=== PATIENT | female | born 1940 | race Caucasian/White ===

== ENCOUNTER → 2017-03-18 | Outpatient (CLI) | payer OTHER ==
[~2017-03-18] MED LIST: ADVAIR 100/501 E1 INH; ADVAIR 250/501 EA INH; ALBUTEROL; ANTIVERT PO; ANTIVERT25 MG PO; ATROVENT I0.5 MG/2.5 INH; BIAXIN500 MG PO; BREO ELLIPTA 11 EACH INH; CIPRO500 MG PO; CYCLOBENZAPRINE10 MG PO; DIFLUCAN150 MG PO; FLONASE0.05 MG/AC NS; HCTZ/TRIAMTEREN1 CA2 PO; KEFLEX500 MG PO; LEVOFLOXACIN500 MG PO; LIPITOR PO; LOPRESSOR; Lopressor25 MG PO; MEDROL DOSEPAK4 MG PO; MOBIC7.5 MG PO; NITROTAB0.4 MG SL; NORCO 5-325 TA1 EACH PO; OXYGEN NAS; PEPCID20 MG PO; PHENERGAN W/CO120 ML PO; PLAVIX75 MG PO; PREDNISONE20 MG PO; PRILOSEC20 MG PO; PROTONIX40 MG PO; PROVENTIL0.09 MG/AC IH; SYMBICORT1 AE1 IH; TRAMADOL HCL50 MG PO; TRAMADOL50 MG PO; VENTOLIN 02.5 MG/3 M INH; VENTOLIN HFA INH; VIBRAMYCIN100 MG PO; VICODIN 5/500 505 MG PO; XANAX0.25 MG PO; XANAX0.5 MG PO; ZOVIRAX800 MG PO
--- NOTE | ~2017-03-18 | ST ---
[place], [place] EXERCISE STRESS TEST REPORT NAME: [id number] UNIT #: [id number] ROOM: DOCTOR: HA AGOSTO MD BIRTHDATE: [birth year] DOS: 03/18/2017 PHARMACOLOGIC STRESS TEST. REFERRED BY: INDICATION: Dyspnea. PROCEDURE: The patient was given a rapid infusion of regadenoson 0.4 mg intravenously followed by a saline flush. She experienced dyspnea, headache and nausea. Her resting heart rate of 81, harini to 110. The resting blood pressure of 118/70, fell to 100/50. Her symptoms persisted and therefore, she was given aminophylline 100 mg intravenously with relief of symptoms. She had a normal tachycardic heart rate response, but no diagnostic ST changes with the infusion. IMPRESSION: 1. Well tolerated infusion of regadenoson. 2. Isotope injected 40 seconds after the infusion of regadenoson. Please see the separately dictated imaging report for further details of the patient's stress test results. HA AGOSTO MD CM:STRESS:EXERCISE STRESS TEST REPORT [id number] HA AGOSTO MD
--- NOTE | 2017-03-18 10:15 | NUR ---
INFORMED CONSENT OBTAINED FOR LEXISCAN NUCLEAR STRESS TEST WITH DR. AGOSTO. RESTING EKG NSR WITH A RESTING HR OF 81 WITH BP OF 118/70. LUNGS DIMINISHED BS WITH SPO2 OF 95% WITH NASAL O2 OF 3L. PT COMPLETED A 1:00 LEXISCAN PROTOCOL RECEIVING LEXISCAN 0.4 MG IV OVER 10 SECONDS. HAD NO CHEST PAIN OR ANY ST CHANGES. HAD SHORTNESS OF BREATH WITH SPO2 OF 98% WITH NASAL O2 OF 3L. ALSO HAD C/O NAUSEA AND HEADACHE. HAD A PEAK HR OF 110 WITH BP OF 100/50. CONTINUED TO HAVE C/O NAUSEA AND HEADACHE IN RECOVERY AND MEDICATED WITH AMINOPHYLLINE 100 MG ORDERED. NAUSEA AND HEADACHE RELIEVED AFTER AMINOPHYLLINE ADMINISTERED. LAST RECOVERY HR OF 95 WITH BP OF 110/64. AWAITING SCANNING IN STABLE CONDITION.
== END | disposition home or self-care (01) ==
LOC: CARD 01:34
DX: I25.10 Atherosclerotic heart disease of native coronary artery without angina pectoris (principal)

== ENCOUNTER 2017-08-29 11:40 | Inpatient (IN) | payer OTHER ==
[~2017-08-29] VITALS: Ht 160 cm; Wt 70.8 kg
--- NOTE | ~2017-08-29 | PR ---
[place], [place] PROGRESS NOTE NAME: DAMION AMOR UNIT #: [id number] ROOM: 407 DOCTOR: FRANK COFFMAN MD,GREG BIRTHDATE: [birth year] DOS: 09/06/2017 SUBJECTIVE: She has been noted comfortable at this time, sitting on the chair, reduction of symptoms of shortness of breath noted, coughing has been noted moderately without any expectoration or symptoms of chest pain or any acute hemoptysis. OBJECTIVE: VITAL SIGNS: Normal temperature, respiratory rate 18, heart rate of 96, blood pressure 131/77. Pulse ox saturation on 3 liters nasal cannula 92% saturation. HEENT: No new change. NECK: Supple. CARDIOVASCULAR: S1, S2 is audible. LUNGS: The patient noted with moderate decreased breath sounds with expiratory wheezing, decreased from previous exam. ABDOMEN: Soft, nontender, bowel sounds present. EXTREMITIES: Without any acute edema. LABORATORY DATA: Chest x-ray of the patient was noted with small area of atelectasis with infiltration in the left lower lung base. IMPRESSION: The patient has been noted with ongoing cough with sputum expectoration, acute on chronic hypoxic and hypercapnic respiratory failure, small area of atelectasis in the left lower lobe related to mucus impaction. PLAN OF TREATMENT: Continue current conservative treatment, other therapies. Bronchoscopy planned to be done on Friday. Other supportive therapy, plan of management and care. GREG MARIE MD CM:PNTRANS [id number] GREG COFFMAN MD 09/07/17 0044 interface
--- NOTE | ~2017-08-29 | PR ---
[place], [place] PROGRESS NOTE NAME: DAMION AMOR UNIT #: [id number] ROOM: 407 DOCTOR: FRANK COFFMAN MD,GREG BIRTHDATE: [birth year] DOS: 09/02/2017 SUBJECTIVE: She has been noted comfortable, transferred from Intensive Care Unit to telemetry floor, was resting comfortably in the bed, sitting, eating her food, using oxygen supplementation with nasal cannula this morning. She has used the BiPAP previously as ordered. OBJECTIVE: VITAL SIGNS: This morning, normal temperature, respiratory rate 20, heart rate 94, blood pressure 146/80, pulse oxygen saturation on 4 liters at 96% saturation. HEENT: Examination shows head was atraumatic. Eyes nonicterus. NECK: Supple. CARDIOVASCULAR: S1, S2 audible. LUNGS: Noted with moderate reduction in the breath sounds bilaterally. There were no crackles or wheezing. ABDOMEN: Soft, nontender. Bowel sounds present. EXTREMITIES: Without any acute edema. LABORATORY DATA: Arterial blood gas yesterday on 5 liters, pH is 7.25, pCO2 of 66, pO2 of 80. IMPRESSION: The patient with slow but gradual resolution of acute on chronic hypercapnic and hypoxic respiratory failure with acute exacerbation of chronic obstructive pulmonary disease. PLAN OF TREATMENT: No changes in the plan of therapy at this time. Continue the BiPAP, use will be intermittent during the day and continuous at nighttime. Oxygen supplementation, bronchodilators, other treatment. The steroid dose could be reduced starting tomorrow to 40 mg b.i.d. from 80 mg b.i.d. Other supportive therapy, plan of management. Ambulation and physical therapy was advised. GREG MARIE MD CM:PNTRANS [id number] GREG COFFMAN MD 09/02/17 1723 interface
--- NOTE | ~2017-08-29 | PR ---
[place], [place] PROGRESS NOTE NAME: DAMION AMOR UNIT #: [id number] ROOM: 407 DOCTOR: FRANK COFFMAN MD,GREG BIRTHDATE: [birth year] DOS: 09/01/2017 SUBJECTIVE: The patient was noted comfortable at this time, resting, sitting on the chair, noted fully awake, alert and oriented, using oxygen supplementation nasal cannula. She was transferred to Intensive Care Unit yesterday noted with hypoxia. She has been continued BiPAP setting is 20/10. She has been using the BiPAP as advised continuous at nighttime, intermittent rather during the day as well. Denies symptoms of hemoptysis. Denies any nausea, vomiting, diarrhea, abdominal pain. Denies any edema or pain of lower extremities. Denies any skin lesions or rashes. Denies symptoms of dizziness. Denies symptoms of headache. Remaining systems were reviewed, they were noted all negative. PHYSICAL EXAMINATION: VITAL SIGNS: Temperature 100.3 degrees Fahrenheit noted to normal temperature. The respiratory recorded as 20-21. Heart rate of 86-114, blood pressure 127/67-132/68. The pulse oxygen saturation on 4 liter nasal cannula was 89% with 5 liters 90% saturation BiPAP, 2 liters 40% oxygen saturation 98% saturation. HEENT: Head was atraumatic. Eyes nonicterus. NECK: Supple. CARDIOVASCULAR: S1, S2 is audible. LUNGS: Noted generally decreased breath sounds bilaterally, scattered wheezing. There were no crackles. ABDOMEN: Soft, nontender. Bowel sounds present. CENTRAL NERVOUS SYSTEM: Noted without any acute edema. MUSCULOSKELETAL: Without any acute deformities. SKIN: No lesions or rashes. LABORATORY DATA: Chest x-ray 1 view were done yesterday and the patient transferred to Intensive Care Unit was noted without any acute pulmonary infiltration. COPD changes were present. CBC this morning, hemoglobin 10.5, hematocrit 35.0, platelet count normal. WBC count, normal. Arterial blood gas that I ordered for the patient this morning was obtained on 5 liters, pH of 7.25, pCO2 of 66.4, pO2 of 88.2. CMP this morning, BUN 26, creatinine 1.07. Glucose 113. Total protein 5.8, albumin 2.8. AST 47. IMPRESSION: 1. The patient noted with acute on chronic severe hypercapnic hypoxic respiratory failure, clinically improving. 2. Improving acute exacerbation of chronic obstructive pulmonary disease progressively. 3. Mild azotemia noted mostly secondary to corticosteroids as well. 4. Past history of nicotine abuse. 5. Metabolic alkalosis secondary to hypercarbia. PLAN OF MANAGEMENT: The patient could be transferred again to the telemetry floor, but continue the BiPAP as ordered with the current settings. Oxygen supplementation, maintain pulse ox 92% or greater. Monitor the respiratory symptoms closely. Usual care. All other supportive therapy, plan of management [place], [place] PROGRESS NOTE NAME: DAMION AMOR UNIT #: [id number] ROOM: 407 DOCTOR: GREG PA MD BIRTHDATE: [birth year] and treatments. GREG MARIE MD CM:DRE [id number] GREG COFFMAN MD 09/01/17 2352 interface
--- NOTE | ~2017-08-29 | CON ---
[place], [place] REPORT OF CONSULTATION NAME: DAMION AMOR UNIT #: [id number] ROOM: 517 DOCTOR: FRANK COFFMAN MDGREG BIRTHDATE: [birth year] DOS: 08/30/2017 PULMONARY CONSULTATION, EVALUATION, AND MANAGEMENT CONSULTATION ORDERED BY THE : Hospitalist services. REASON FOR CONSULTATION: To assess the patient's current acute on chronic hypoxic and hypercapnic respiratory failure. HISTORY OF PRESENT ILLNESS: This is a 77-year-old white female admitted to the hospital on 05/01/2017 as the patient presented with symptoms of having increased shortness of breath, which was ongoing for the past several days. The symptoms were noted with further gradual increase in the last 2 days requiring assessment in the Emergency Room. She has been also noted to have cough and associated sputum expectoration, yellowish in color, currently noted no sputum expectoration. She denies any symptoms of chest pain, but chest tightness was noted. Denies symptoms of hemoptysis as current symptom. REVIEW OF SYSTEMS: CONSTITUTIONAL SYMPTOMS: She has symptoms of fever and chills at the present time, sore throat, or hoarseness. EYES: Denied burning, redness, or discharge. She denies postnasal drainage. CARDIOVASCULAR: No anginal pain, edema, or pain in lower extremity. GASTROINTESTINAL: No dysphagia, nausea, vomiting, diarrhea, abdominal pain, hematemesis, melena, or hematochezia. SKIN: No abnormal lesions or rashes. CENTRAL NERVOUS SYSTEM: No dizziness, headache, diplopia, or syncopal episodes. MUSCULOSKELETAL SYMPTOMS: Without any acute deformities. CENTRAL NERVOUS SYSTEM: The patient denies syncopal episodes. The patient has tingling sensation in extremities. Remaining systems were reviewed and they were noted all negative. PAST MEDICAL HISTORY: 1. Centrilobular emphysema. 2. Chronic hypoxic respiratory failure, requiring oxygen supplementation. She later use at home regular. 3. History of uterine cancer. 4. Nicotine dependence. 5. History of herpetic neuralgia. 6. Coronary artery disease. 7. Generalized anxiety disorder. 8. Past history of shingles. PAST SURGICAL HISTORY: 1. Cardiac catheterization and coronary stents insertion. 2. Complete hysterectomy. 3. Therapeutic bronchoscopy in 2010 and in May 2017 during her recent admission. [place], [place] REPORT OF CONSULTATION NAME: DAMION AOMR UNIT #: [id number] ROOM: 517 DOCTOR: FRANK COFFMAN MD,GREG BIRTHDATE: [birth year] SOCIAL HISTORY: The patient is , has 4 children, lives at home. Tobacco usage noted since teenager as about a pack of cigarettes per day. There was no history of alcohol use or illicit drug use. FAMILY HISTORY: Both parents have been with history of lung cancer reported in some family members. MEDICATIONS: Current medications administered noted IV Solu-Medrol 80 mg b.i.d., Plavix, Lipitor, metoprolol tartrate, DuoNeb, Zithromax, Rocephin, and other p.r.n. medications administered. DRUG ALLERGIES: Noted with no known drug allergies. PHYSICAL EXAMINATION: GENERAL: This is a 77-year-old female who has been noted currently awake with use of the BiPAP, fully awake and alert, follows vocal commands appropriately, answer the question while even using the BiPAP. Height for the patient was noted as 5 feet 3 inches, weight 156 pounds, and BMI 27. VITAL SIGNS: Normal temperature, respiratory rate 16-23, heart rate 107-83, and blood pressure of 60/65-134/59. Pulse oxygen saturation noted on 45% BiPAP was 99% saturation on 3 liters, earlier 96% saturation. HEENT: On examination, mild obesity. Head was atraumatic. Eyes nonicterus. NECK: Supple. CARDIOVASCULAR: S1, S2 is audible. LUNGS: Noted diffuse expiratory wheezing, no crackles. ABDOMEN: Soft, nontender. Mild obesity. Bowel sounds present without tenderness. VISIBLE SKIN: No lesions or rashes. CENTRAL NERVOUS SYSTEM: Cranial nerves 2-12 intact. No focal deficit. MUSCULOSKELETAL: No gross deformity. LABORATORY DATA: The patient's CBC of 08/29/2017 was noted as normal CBC. On admission, arterial blood gas initial, first pH 7.35, pCO2 61, and pO2 121 on 3 liter nasal cannula. The arterial blood gas later on 3 liters, pH 7.23, pCO2 75, and pO2 77.6. The CMP of the patient that was done yesterday noted BUN 17, creatinine 1.53, and CO2 38. The CMP, which was done today shows glucose 148, BUN 18, creatinine 1.25, and CO2 was 34. Chest x-ray, 1 view, which was done in the Emergency Room was noted without any acute pulmonary infiltration. IMPRESSION: 1. The patient with current acute on chronic hypercapnic and hypoxic respiratory failure, exacerbation of chronic obstructive pulmonary disease. 2. Acute bronchitis was also noted, most likely bacterial in origin very likely. 3. Past history of tobacco use, which has been discontinued. 4. Metabolic ____ secondary to chronic hypercarbia. PLAN OF TREATMENT: Continue current dose of Solu-Medrol, bronchodilators, and the BiPAP setting has been changed to 16/10 that will be continued. The additional changes in treatment will be done based on progression of the [place], [place] REPORT OF CONSULTATION NAME: DAMION AMOR UNIT #: [id number] ROOM: [facility] DOCTOR: FRANK COFFMAN MD,GREG BIRTHDATE: [birth year] illness. Repeat arterial blood gases 2-3 hours post changes of the BiPAP and reassessment. Further changes accordingly. Continuation of other supportive, plan of management, and care plan. Usual treatment. Additional treatment changes will be made for the patient based on the progression of the illness. Thanks for allowing me to participate in the care of this patient. GREG MARIE MD CM:CONSTR:REPORT OF CONSULTATION 08/31/17 0339 interface
--- NOTE | ~2017-08-29 | PR ---
[place], [place] PROGRESS NOTE [id number] UNIT #: [id number] ROOM: 407 DOCTOR: FRANK COFFMAN MD,GREG BIRTHDATE: [birth year] DOS: 09/08/2017 SUBJECTIVE: The patient remains in the hospital. The patient still noted the coughing, which remained nonproductive, shortness of breath with mild exertion with general weakness and fatigue. She has been noted n.p.o. past midnight. Bronchoscopy that was planned to be done today. She had not been noted any acute hemodynamic instability at the present time. General weakness and fatigue were noted. The patient with decreased ambulation secondary to his shortness of breath. Denies any symptoms of nausea, vomiting, diarrhea or any abdominal pain. The remaining systems were reviewed. The patient, they were noted all negative. OBJECTIVE: VITAL SIGNS: For the patient which were recorded showed the temperature noted as normal, respiratory rate 20, heart rate of 85, and blood pressure 117/57. Pulse oxygen saturation of the patient was noted as 99% saturation on 4 liters nasal cannula. HEENT: Examination shows head was atraumatic. Eyes nonicterus. NECK: Supple. CARDIOVASCULAR: S1, S2 audible. LUNGS: The patient was noted with moderate decreased breath sounds, expiratory wheezing, no crackles. ABDOMEN: Soft and nontender. Bowel sounds present. EXTREMITIES: Without any acute edema. MUSCULOSKELETAL: Without any acute deformities. LABORATORY DATA: CMP today, BUN 29, creatinine was normal, glucose normal, carbon dioxide 41. Potassium 5.2. CBC of the patient this morning; WBC count 13.7, hemoglobin 11.2, hematocrit 37.7, and platelet count of 266,000. IMPRESSION: 1. Ongoing acute exacerbation of chronic obstructive pulmonary disease, acute tracheobronchitis, acute chronic hypercapnic and hypoxic respiratory failure. 2. Metabolic alkalosis which is treated with Diamox as well. 3. ____ debility, remains persistent. 4. Impaction of the mucus in the airways also suspected. PLAN OF THERAPY: Continuation of the bronchodilators and oxygen supplementation. Continue Diamox. The patient monitoring the kidney function as well as electrolytes at this time. The potassium of the patient was noted 3.8 today. Other supportive plan of therapy and management plan of care. Any changes modification treatment if necessary will be ordered after the bronchoscopy. [place], [place] PROGRESS NOTE NAME: DAMION AMOR UNIT #: [id number] ROOM: 407 DOCTOR: FRANK COFFMAN MD,GREG BIRTHDATE: [birth year] GREG MARIE MD CM:PNTRANS [id number] [id number] GREG COFFMAN MD 09/08/17 1452 interface
--- NOTE | ~2017-08-29 | PROC NOTE ---
[place], [place] PROCEDURE NOTE NAME: DAMION AMOR UNIT #: [id number] ROOM: 407 DOCTOR: FRANK COFFMAN MD,GREG BIRTHDATE: [birth year] DOS: 09/08/2017 PREOPERATIVE DIAGNOSIS: Persistent severe cough. The patient is on maximal medical therapy. POSTOPERATIVE DIAGNOSIS: The patient has successful removal of the mucus impaction major airways bilaterally. PROCEDURE DESCRIPTION: Informed consent obtained for the patient. She was brought to the OR and placed in supine position. Conscious sedation administered by the Anesthesia Department. After achieving proper sedation, airway introduced into the mouth. Bronchoscope advanced to the airway into laryngeal area. Epiglottis and vocal cords were seen. Vocal cords were moving symmetrically with the movements bilaterally. Bronchoscope entered to vocal cord and tracheal lumen. The tracheal lumen of the patient was noted with moderate amount of thick mucoid secretion suctioned at saida level. Right upper, right middle, right lower, left upper, lingular lower lobe bronchi were all noted with impaction caused by the mucus plugs. All secretions suctioned out and cleared out with normal saline wash, sent for cultures. Procedure well tolerated by the patient without complication. Postoperative findings were discussed with the patient's daughter in detail. No change in treatment at this time will be necessary. GREG MARIE MD CM:PROCNOTE:PROCEDURE NOTE 1236 1450 GREG COFFMAN MD
--- NOTE | ~2017-08-29 | EKG ---
[place], [place] ELECTROCARDIOGRAM REPORT NAME: DAMION AMOR UNIT #: [id number] ROOM: [place] [id number] DOCTOR: FRANK COFFMAN MD,GREG BIRTHDATE: [birth year] DOS: 08/29/2017 ELECTROCARDIOGRAM REPORT The electrocardiogram showed normal sinus rhythm. Heart rate of 86 beats per minute. GREG MARIE MD CM:EKGRPT:ELECTROCARDIOGRAM REPORT [id number] GREG COFFMAN MD
--- NOTE | ~2017-08-29 | PR ---
[place], [place] PROGRESS NOTE NAME: DAMION AMOR UNIT #: [id number] ROOM: 407 DOCTOR: FRANK COFFMAN MD,GREG BIRTHDATE: [birth year] DOS: 09/04/2017 SUBJECTIVE: The patient was noted comfortable at this time without acute distress, resting on the bed. Still noted with overall debility. She has been assessed for Jail Facility placement. OBJECTIVE: VITAL SIGNS: Normal temperature, respiratory rate 20, heart rate 93, blood pressure 132/79 and 120/60. Pulse oxygen saturation 3 liters nasal cannula 94% saturation. HEENT: Moderate obesity. Head was atraumatic. Eyes nonicterus. CARDIOVASCULAR: S1, S2 is audible. LUNGS: Noted with [id number] decreased breath sounds, scattered wheezing, no crackles. ABDOMEN: Soft, nontender and obese. EXTREMITIES: Without any acute edema. LABORATORY DATA: CBC: Normal WBC count and hemoglobin 11.5. BMP: BUN 36 and creatinine 1.14. IMPRESSION: 1. The patient with slow resolution of acute on chronic severe hypercapnic and hypoxic respiratory failure. 2. Acute exacerbation of chronic obstructive pulmonary disease. 3. Mild azotemia related to corticosteroids. PLAN OF MANAGEMENT: Decrease the Solu-Medrol to 40 mg daily dosing from today. Proceed with the Jail Facility assessment. Noninvasive ventilator for the patient's chronic hypercapnic respiratory failure. Order was noted in process for prior authorization from the insurance. GREG MARIE MD CM:PNSP 1207 [id number] GREG COFFMAN MD 09/04/17 1427 interface
--- NOTE | ~2017-08-29 | PR ---
[place], [place] PROGRESS NOTE [id number] UNIT #: [id number] ROOM: 407 DOCTOR: FRANK COFFMAN MD,GREG BIRTHDATE: [birth year] DOS: 09/05/2017 SUBJECTIVE: The patient was noted comfortable. The patient rather sitting on the chair this morning has developed increased chest congestion and cough, unable to expectorate sputum, using Flutter valve. Also, continued bronchodilators and the Mucinex. She has not been noted any symptoms of chest pain, shortness breath. Wheezing was also noted intermittently, worsens at times. She has been using the BiPAP as previously. She has not been noted symptoms of abdominal pain, nausea, vomiting. Mild edema of the ankles were reported. Medications were reviewed. They were noted all negative. OBJECTIVE: VITAL SIGNS: Normal temperature, respiratory rate 18, heart rate 91, blood pressure 129/68. The pulse oxygen saturation on 3 liters nasal cannula 96% saturation ____ saturation. HEENT: Head was atraumatic. Eyes: No icterus. NECK: Supple. CARDIOVASCULAR: S1, S2 audible. LUNGS: The patient was noted without any crackles. Moderate decreased breath sounds with expiratory wheezing. ABDOMEN: Soft, nontender. Bowel sounds present. EXTREMITIES: The patient noted without any acute edema. SKIN: No lesions or rashes. MUSCULOSKELETAL: Without any acute deformities. LABORATORY DATA: The CBC that was done for the patient today: WBC count noted 11.7, hemoglobin 11.3, platelet count was normal. BMP this morning, BUN 33, creatinine normal, glucose 123. CO2 of 34. The chest x-ray was ordered for the patient for further assessment. IMPRESSION: 1. The patient with increased respiratory symptoms of coughing, chest congestion, inability to expectorate sputum with wheezing and shortness of breath. 2. Acute exacerbation of chronic obstructive pulmonary disease. The patient was also noted with acute on chronic severe hypercapnic and hypoxic respiratory failure. PLAN OF TREATMENT: Assess the chest x-ray of the patient. Continue Mucinex, bronchodilators and the flutter valve use. Bronchoscopy for the patient was planned to be done on Friday morning. The patient's ____ to be discharged to the nursing facility, which need to be cancelled because of the patient worsening of the respiratory status noted and further addition of treatment ____ acute care. [place], [place] PROGRESS NOTE NAME: DAMION AMOR UNIT #: [id number] ROOM: 407 DOCTOR: GREG PA MD BIRTHDATE: [birth year] GREG MARIE MD CM:PNSP [id number] GREG COFFMAN MD 09/05/17 1803 interface
--- NOTE | ~2017-08-29 | PR ---
[place], [place] PROGRESS NOTE NAME: DAMION AMOR UNIT #: [id number] ROOM: 407 DOCTOR: FRANK COFFMAN MD,GREG BIRTHDATE: [birth year] DOS: 09/07/2017 SUBJECTIVE: She has been noted comfortable. She noted the coughing. The patient remains nonproductive. Denies symptoms of chest pain. The shortness of breath has been improving. Denies symptoms of abdominal pain. OBJECTIVE: VITAL SIGNS: Normal temperature, respiratory rate 18, heart rate 82, blood pressure 108/48. Pulse oxygen saturation of the patient recorded on 3 liters 95% saturation. HEENT: Head was atraumatic. Eyes nonicterus. CARDIOVASCULAR: S1, S2 audible. LUNGS: The lung was noted with moderate decreased breath sounds with expiratory wheezing, no crackles. ABDOMEN: Soft, nontender. EXTREMITIES: Without acute edema. LABORATORY DATA: CBC of count 13.7, hemoglobin 11.2, platelet count was noted as normal. The CMP of patient, BUN 29, creatinine was normal. CO2 of 42. IMPRESSION: 1. The patient with acute on chronic hypercapnic and hypoxic respiratory failure with acute ongoing bronchitis with coughing, preop for bronchoscopy tomorrow. 2. Metabolic alkalosis secondary to the chronic hypercarbia. PLAN OF TREATMENT: Start the patient on the Diamox 250 mg p.o. b.i.d. for metabolic alkalosis. Monitoring of the potassium ____ that will be done. Other supportive therapy, plan of management and care plan. GREG MARIE MD CM:PNTRANS [id number] GREG COFFMAN MD 09/07/17 1826 interface
--- NOTE | ~2017-08-29 | PR ---
[place], [place] PROGRESS NOTE NAME: DAMION AMOR UNIT #: [id number] ROOM: 415 DOCTOR: GREG PA MD BIRTHDATE: [birth year] DOS: 09/09/2017 SUBJECTIVE: The patient noted comfortable at this time, has bronchoscopy done yesterday with significant reduction and improvement in respiratory symptoms were noted. She has not been noted symptoms of chest pain or any hemoptysis. OBJECTIVE: VITAL SIGNS: Normal temperature, respiratory rate 18, heart rate 78, blood pressure 115/53. The pulse oxygen saturation of the patient noted on 3 liters nasal cannula 97% saturation. HEENT: Examination shows head was atraumatic. Eyes, nonicterus. NECK: Supple. CARDIOVASCULAR: S1, S2 is audible. LUNGS: The patient was noted without any wheezing or crackles at the present time. Breaths are noted mildly decreased bilaterally. ABDOMEN: Soft, nontender. EXTREMITIES: Without any acute edema. LABORATORY DATA: Gram-stain of the bronchial washing noted many white blood cells, moderate epithelial cells, rare gram-positive cocci in pairs, and rare budding yeast. The BMP of patient was noted as normal BUN and creatinine of 1.15, CO2 of 40. IMPRESSION: Resolving acute on chronic severe hypercapnic hypoxic respiratory failure with improvement in the respiratory symptom. The patient noted significant reduction in the cough and wheezing after bronchoscopy. Pending culture results. PLAN OF TREATMENT: Continue bronchodilators and oxygen supplementation. The patient discharged and admitted to the group home facility today with followup cultures, make any change in the antibiotic if necessary. The bronchial washing cultures. The patient will be benefitting from noninvasive ventilator as the patient was not noted effective improvement in the respiratory failure with use of the BiPAP and/or CPAP or similar devices. [place], [place] PROGRESS NOTE NAME: DAMION AMOR UNIT #: [id number] ROOM: 415 DOCTOR: GREG PA MD BIRTHDATE: [birth year] GREG MARIE MD CM:PNTRANS [id number] GREG COFFMAN MD 09/09/171920 interface
--- NOTE | ~2017-08-29 | PR ---
[place], [place] PROGRESS NOTE NAME: DAMION AMOR UNIT #: [id number] ROOM: 407 DOCTOR: RFANK COFFMAN MD,GREG BIRTHDATE: [birth year] DOS: 09/03/2017 SUBJECTIVE: The patient has been noted comfortable at this time using the BiPAP as ordered and other medical management as well. She has not been noted any symptoms of chest pain or any hemoptysis. The patient has not been reported any symptoms of abdominal pain. Denies symptoms of nausea or vomiting. Generally weak and fatigued, was noted still requires significant amount of oxygen supplementation as well. The remaining systems were reviewed, they were noted all negative. OBJECTIVE: GENERAL: General weakness was noted. VITAL SIGNS: Showed normal temperature, respiratory rate 20, heart rate of 77, blood pressure 144/71. The pulse oxygen saturation noted on 40% with the BiPAP 97% with 4 liters 97% saturation. HEENT: Moderate obesity. Head was atraumatic. Eyes: Nonicterus. NECK: Supple. CARDIOVASCULAR: S1, S2 is audible. LUNGS: The patient noted general reduction in breath sounds without any wheeze or crackles. ABDOMEN: Soft, nontender. EXTREMITIES: The patient was noted without any acute edema. MUSCULOSKELETAL: Does not show any deformities. VISIBLE SKIN: No lesions or rashes. GENITOURINARY: Noted, intact for this patient without any focal deficit. LABORATORY DATA: CBC today were normal, WBC count and platelet count, hemoglobin 10.9. CMP this morning, glucose 148, BUN 38, creatinine 1.19. CO2 34. IMPRESSION: 1. Severe debility. Noted with acute on chronic, severe hypercapnic and hypoxic respiratory failure. 2. Acute exacerbation of chronic obstructive pulmonary disease with gradual and slow improvement. 3. Metabolic alkalosis secondary to chronic hypercarbia. PLAN OF MANAGEMENT: Continue BiPAP during the hospitalization for discharge for patient from the hospital. The patient would benefit from use of noninvasive ventilator to prevent exacerbation or reduce the hospitalization for this patient of underlying chronic obstructive pulmonary disease. This would also result in improvement in the quality of life with use of noninvasive ventilator would be used at home, at nighttime, p.r.n. during the day. The patient does have severe COPD. The authorization from the insurance would be asked. In the meantime, no other change in treatment will be necessary. Potential assessment for [facility] for continued medical management would be advised as well. Assessment and management has been discussed with primary care attending of this patient. [place], [place] PROGRESS NOTE NAME: DAMION AMOR UNIT #: [id number] ROOM: [facility] DOCTOR: FRANK COFFMAN MD,GREG BIRTHDATE: [birth year] GREG MARIE MD CM:PNTRANS [id number] GREG COFFMAN MD 09/03/17 1838 interface
[2017-08-29 11:45] VITALS: BP 126/61
[2017-08-29 12:19] VITALS: BP 108/63
[2017-08-29 12:37] LABS: BASO % 0.3 % (0.0-1.0); EOS # 0.1 10*3/uL (0.0-0.4); EOS % 0.8 % (1.0-4.0); HEMATOCRIT 40.9 % (37.0-47.0); HEMOGLOBIN 12.8 g/dl (12.0-16.0); LYMPH # 0.7 10*3/uL (1.3-4.4); MEAN CELL VOLUME 96.9 fl (81.0-99.0); MEAN CORPUSCULAR HGB 30.3 pg (27.0-31.0); MEAN CORPUSCULAR HGB CONC 31.3 g/dl (33.0-37.0); MEAN PLATELET VOLUME 11.4 fl (9.6-12.3); MONO # 0.9 10*3/uL (0.1-1.0); MONO % 12.6 % (3.0-9.0); NEUT # 5.5 10*3/uL (2.3-7.9); PLATELET COUNT AUTOMATED 208 10*3/uL (130-400); RED BLOOD COUNT 4.22 10*6/uL (4.10-5.10); RED CELL DISTRI WIDTH 12.5 % (0-14.5); WHITE BLOOD COUNT 7.2 10*3/uL (4.8-10.8)
[2017-08-29 12:43] LABS: ABG BASE EXCESS 6.5 mmol/L (-2.0-2.0); ABG HCO3 33.4 mmol/l (22-26); ABG O2 SATURATION 98.6 % (95-97); ARTERIAL BLOOD GAS PCO2 61.6 mmHg (35-45); ARTERIAL BLOOD GAS PH 7.352 (7.35-7.45)
[2017-08-29 12:48] LABS: ACT PARTIAL THROMBO TIME 23.2 SECONDS (20.8-31.5); INTERNATIONAL NORM RATIO 0.9 (2.0-3.5)
[2017-08-29 12:53] LABS: ALBUMIN 3.6 gm/dl (3.1-4.5); ALKALINE PHOSPHATASE 98 U/L (45-117); BUN 17 mg/dl (7-24); CHLORIDE 95 mmol/L (98-107); CREATININE 1.53 mg/dL (0.55-1.02); POTASSIUM 3.8 mmol/L (3.5-5.1); SGOT/AST 21 IU/L (3-35); SGPT/ALT 12 U/L (12-78); SODIUM 137 mmol/L (136-145); TOTAL PROTEIN 7.2 gm/dL (6.4-8.2)
[2017-08-29 12:56] LABS: TROPONIN I < 0.015 ng/ml (<0.045)
[2017-08-29 13:19] VITALS: BP 102/54
[2017-08-29 14:15] VITALS: BP 100/59
[2017-08-29 15:25] VITALS: BP 134/59
[2017-08-29] MEDS ORDERED: LIPITOR20 MG PO (15:48)
[2017-08-29] MEDS ORDERED: ALPARAZOLAM0.5 MG PO (15:54)
[2017-08-29] MEDS ORDERED: SYMB160 INH (15:54)
[2017-08-29] MEDS ORDERED: Ipratropium Brom3 ML INH (15:55)
[2017-08-29 20:00] VITALS: BP 112/66
[2017-08-30] VITALS: BP 114/60
[2017-08-30 06:25] LABS: HEMATOCRIT 38.6 % (37.0-47.0); HEMOGLOBIN 11.5 g/dl (12.0-16.0); MEAN CELL VOLUME 99.5 fl (81.0-99.0); MEAN CORPUSCULAR HGB 29.6 pg (27.0-31.0); MEAN CORPUSCULAR HGB CONC 29.8 g/dl (33.0-37.0); MEAN PLATELET VOLUME 11.1 fl (9.6-12.3); PLATELET COUNT AUTOMATED 176 10*3/uL (130-400); RED BLOOD COUNT 3.88 10*6/uL (4.10-5.10); RED CELL DISTRI WIDTH 12.5 % (0-14.5); WHITE BLOOD COUNT 7.1 10*3/uL (4.8-10.8)
[2017-08-30 06:32] LABS: POTASSIUM 4.4 mmol/L (3.5-5.1)
[2017-08-30 06:42] LABS: CREATININE 1.25 mg/dL (0.55-1.02); FREE T4 1.06 ng/dl (0.76-1.46); PHOSPHOROUS 4.5 mg/dL (2.5-4.9); THYROID STIM HORMONE (HS) 0.334 uIU/ml (0.358-4.75); TOTAL PROTEIN 6.4 gm/dL (6.4-8.2)
[2017-08-30 07:02] LABS: ACT PARTIAL THROMBO TIME 24.7 SECONDS (20.8-31.5); INTERNATIONAL NORM RATIO 0.9 (2.0-3.5)
[2017-08-30 07:42] LABS: VITAMIN D, 25-HYDROXY 8.2 ng/mL (30-100)
[2017-08-30 08:00] VITALS: BP 127/56
[2017-08-30 08:26] LABS: BASOPHILS 1 % (0-1); PLATELET SUFFICIENCY NORMAL (NORMAL); TOTAL CELLS COUNTED 100 #CELLS
[2017-08-30 10:12] LABS: ABG BASE EXCESS 1.7 mmol/L (-2.0-2.0); ABG HCO3 30.7 mmol/l (22-26); ABG O2 SATURATION 95.4 % (95-97); ARTERIAL BLOOD GAS PH 7.232 (7.35-7.45); ARTERIAL BLOOD GAS PO2 77.6 mmHg (80-90)
[2017-08-30 12:00] VITALS: BP 108/51
[2017-08-30 13:15] LABS: ABG HCO3 30.2 mmol/l (22-26); ABG O2 SATURATION 98.3 % (95-97); ARTERIAL BLOOD GAS PH 7.224 (7.35-7.45)
[2017-08-30 13:20] LABS: ARTERIAL BLOOD GAS PCO2 75.1 mmHg (35-45)
[2017-08-30 16:00] VITALS: BP 114/87
[2017-08-30 20:00] VITALS: BP 116/65
[2017-08-31] VITALS: BP 102/50
[2017-08-31 01:58] LABS: ABG BASE EXCESS -0.9 mmol/L (-2.0-2.0); ABG HCO3 26.5 mmol/l (22-26); ABG O2 SATURATION 99.5 % (95-97); ARTERIAL BLOOD GAS PCO2 59.3 mmHg (35-45); ARTERIAL BLOOD GAS PH 7.269 (7.35-7.45)
[2017-08-31 08:00] VITALS: BP 111/50
[2017-08-31 08:06] LABS: ABG BASE EXCESS 1.1 mmol/L (-2.0-2.0); ABG HCO3 30.7 mmol/l (22-26); ABG O2 SATURATION 97.3 % (95-97); ARTERIAL BLOOD GAS PH 7.206 (7.35-7.45); ARTERIAL BLOOD GAS PO2 90.1 mmHg (80-90)
[2017-08-31 08:11] LABS: ARTERIAL BLOOD GAS PCO2 79.7 mmHg (35-45)
[2017-08-31 10:38] LABS: ABG BASE EXCESS -0.5 mmol/L (-2.0-2.0); ABG HCO3 28.1 mmol/l (22-26); ABG O2 SATURATION 92.7 % (95-97); ARTERIAL BLOOD GAS PH 7.223 (7.35-7.45); ARTERIAL BLOOD GAS PO2 60.3 mmHg (80-90)
[2017-08-31 10:40] VITALS: BP 112/64
[2017-08-31 10:42] LABS: ARTERIAL BLOOD GAS PCO2 70.4 mmHg (35-45)
[2017-08-31 12:00] VITALS: BP 127/67
[2017-08-31 16:00] VITALS: BP 109/54
[2017-08-31 20:00] VITALS: BP 135/67
[2017-09-01] VITALS: BP 123/60
[2017-09-01 04:00] VITALS: BP 134/62
[2017-09-01 05:03] LABS: HEMOGLOBIN 10.5 g/dl (12.0-16.0); MEAN CELL VOLUME 99.4 fl (81.0-99.0); MEAN CORPUSCULAR HGB 29.8 pg (27.0-31.0); MEAN PLATELET VOLUME 11.2 fl (9.6-12.3); PLATELET COUNT AUTOMATED 172 10*3/uL (130-400); RED BLOOD COUNT 3.52 10*6/uL (4.10-5.10); RED CELL DISTRI WIDTH 12.9 % (0-14.5); WHITE BLOOD COUNT 9.1 10*3/uL (4.8-10.8)
[2017-09-01 05:21] LABS: ALBUMIN 2.8 gm/dl (3.1-4.5); BUN 26 mg/dl (7-24); CHLORIDE 105 mmol/L (98-107); CREATININE 1.07 mg/dL (0.55-1.02); POTASSIUM 3.8 mmol/L (3.5-5.1); SGOT/AST 47 IU/L (3-35); SGPT/ALT 28 U/L (12-78); SODIUM 141 mmol/L (136-145); TOTAL CELLS COUNTED 100 #CELLS
[2017-09-01 05:22] LABS: ALKALINE PHOSPHATASE 78 U/L (45-117); PLATELET SUFFICIENCY NORMAL (NORMAL); POLYCHROMASIA SLIGHT; TOTAL PROTEIN 5.8 gm/dL (6.4-8.2)
[2017-09-01 08:00] VITALS: BP 132/68
[2017-09-01 09:16] LABS: ABG BASE EXCESS 0.4 mmol/L (-2.0-2.0); ABG HCO3 28.4 mmol/l (22-26); ARTERIAL BLOOD GAS PCO2 66.4 mmHg (35-45); ARTERIAL BLOOD GAS PH 7.253 (7.35-7.45); ARTERIAL BLOOD GAS PO2 80.2 mmHg (80-90)
[2017-09-01 12:00] VITALS: BP 121/65
[2017-09-01 16:00] VITALS: BP 146/75
[2017-09-01 20:00] VITALS: BP 147/84
[2017-09-02] VITALS: BP 107/69
[2017-09-02 08:00] VITALS: BP 146/80
[2017-09-02 12:00] VITALS: BP 127/55
[2017-09-02 16:00] VITALS: BP 123/61
[2017-09-02 20:00] VITALS: BP 133/90
[2017-09-03] VITALS: BP 132/68
[2017-09-03 05:47] LABS: ALBUMIN 2.8 gm/dl (3.1-4.5); CREATININE 1.19 mg/dL (0.55-1.02); POTASSIUM 3.7 mmol/L (3.5-5.1); TOTAL PROTEIN 5.6 gm/dL (6.4-8.2)
[2017-09-03 06:30] LABS: BASO % 0.1 % (0.0-1.0); HEMATOCRIT 36.8 % (37.0-47.0); HEMOGLOBIN 10.9 g/dl (12.0-16.0); LYMPH # 0.7 10*3/uL (1.3-4.4); LYMPH % 8.5 % (27.0-41.0); MEAN CELL VOLUME 98.9 fl (81.0-99.0); MEAN CORPUSCULAR HGB 29.3 pg (27.0-31.0); MEAN CORPUSCULAR HGB CONC 29.6 g/dl (33.0-37.0); MEAN PLATELET VOLUME 11.5 fl (9.6-12.3); MONO # 0.3 10*3/uL (0.1-1.0); MONO % 3.9 % (3.0-9.0); NEUT # 7.2 10*3/uL (2.3-7.9); PLATELET COUNT AUTOMATED 224 10*3/uL (130-400); RED BLOOD COUNT 3.72 10*6/uL (4.10-5.10); WHITE BLOOD COUNT 8.2 10*3/uL (4.8-10.8)
[2017-09-03 08:00] VITALS: BP 144/71
[2017-09-03 12:00] VITALS: BP 134/78
[2017-09-03 16:00] VITALS: BP 131/74
[2017-09-03 20:00] VITALS: BP 138/81
[2017-09-04 00:03] VITALS: BP 122/60
[2017-09-04 07:15] LABS: BASO % 0.1 % (0.0-1.0); HEMATOCRIT 36.7 % (37.0-47.0); HEMOGLOBIN 11.5 g/dl (12.0-16.0); LYMPH # 1.1 10*3/uL (1.3-4.4); LYMPH % 9.9 % (27.0-41.0); MEAN CELL VOLUME 96.8 fl (81.0-99.0); MEAN CORPUSCULAR HGB 30.3 pg (27.0-31.0); MEAN CORPUSCULAR HGB CONC 31.3 g/dl (33.0-37.0); MEAN PLATELET VOLUME 10.8 fl (9.6-12.3); MONO # 0.4 10*3/uL (0.1-1.0); MONO % 3.4 % (3.0-9.0); NEUT # 9.1 10*3/uL (2.3-7.9); PLATELET COUNT AUTOMATED 248 10*3/uL (130-400); RED BLOOD COUNT 3.79 10*6/uL (4.10-5.10); WHITE BLOOD COUNT 10.6 10*3/uL (4.8-10.8)
[2017-09-04 07:33] LABS: ALBUMIN 2.8 gm/dl (3.1-4.5); CREATININE 1.14 mg/dL (0.55-1.02); POTASSIUM 3.5 mmol/L (3.5-5.1); TOTAL PROTEIN 5.9 gm/dL (6.4-8.2)
[2017-09-04 08:00] VITALS: BP 133/79
[2017-09-04 12:00] VITALS: BP 132/76
[2017-09-04 16:00] VITALS: BP 125/63
[2017-09-04 20:00] VITALS: BP 138/76
[2017-09-05] VITALS: BP 138/66
[2017-09-05 06:01] LABS: BUN 33 mg/dl (7-24); CHLORIDE 105 mmol/L (98-107); CREATININE 0.94 mg/dL (0.55-1.02); POTASSIUM 3.7 mmol/L (3.5-5.1); SODIUM 144 mmol/L (136-145)
[2017-09-05 06:10] LABS: BASO % 0.2 % (0.0-1.0); HEMATOCRIT 36.9 % (37.0-47.0); HEMOGLOBIN 11.3 g/dl (12.0-16.0); LYMPH # 1.5 10*3/uL (1.3-4.4); LYMPH % 13.1 % (27.0-41.0); MEAN CELL VOLUME 97.4 fl (81.0-99.0); MEAN CORPUSCULAR HGB 29.8 pg (27.0-31.0); MEAN CORPUSCULAR HGB CONC 30.6 g/dl (33.0-37.0); MEAN PLATELET VOLUME 11.1 fl (9.6-12.3); MONO # 0.9 10*3/uL (0.1-1.0); MONO % 7.9 % (3.0-9.0); NEUT # 9.1 10*3/uL (2.3-7.9); NEUT % 77.8 % (47.0-73.0); NUCLEATED RED BLOOD CELL 0.2 % (0.0-0.0); PLATELET COUNT AUTOMATED 252 10*3/uL (130-400); RED BLOOD COUNT 3.79 10*6/uL (4.10-5.10); RED CELL DISTRI WIDTH 13.2 % (0-14.5); WHITE BLOOD COUNT 11.7 10*3/uL (4.8-10.8)
[2017-09-05 08:00] VITALS: BP 129/68
[2017-09-05 12:00] VITALS: BP 130/64
[2017-09-05 16:00] VITALS: BP 123/74
[2017-09-05 20:00] VITALS: BP 129/67
[2017-09-06] VITALS: BP 115/67
[2017-09-06 08:00] VITALS: BP 131/77
[2017-09-06 12:00] VITALS: BP 127/71
[2017-09-06 16:00] VITALS: BP 127/65
[2017-09-06 20:00] VITALS: BP 135/90
[2017-09-07] VITALS: BP 126/59
[2017-09-07 06:33] LABS: BASO % 0.1 % (0.0-1.0); HEMATOCRIT 37.7 % (37.0-47.0); HEMOGLOBIN 11.2 g/dl (12.0-16.0); LYMPH # 1.9 10*3/uL (1.3-4.4); LYMPH % 13.6 % (27.0-41.0); MEAN CELL VOLUME 101.3 fl (81.0-99.0); MEAN CORPUSCULAR HGB 30.1 pg (27.0-31.0); MEAN CORPUSCULAR HGB CONC 29.7 g/dl (33.0-37.0); MEAN PLATELET VOLUME 10.9 fl (9.6-12.3); MONO % 7.1 % (3.0-9.0); NEUT # 10.7 10*3/uL (2.3-7.9); NEUT % 78.3 % (47.0-73.0); PLATELET COUNT AUTOMATED 266 10*3/uL (130-400); RED BLOOD COUNT 3.72 10*6/uL (4.10-5.10); RED CELL DISTRI WIDTH 13.2 % (0-14.5); WHITE BLOOD COUNT 13.7 10*3/uL (4.8-10.8)
[2017-09-07 07:04] LABS: ALBUMIN 2.7 gm/dl (3.1-4.5); BUN 29 mg/dl (7-24); CHLORIDE 99 mmol/L (98-107); POTASSIUM 4.1 mmol/L (3.5-5.1); SGOT/AST 25 IU/L (3-35); SGPT/ALT 36 U/L (12-78); SODIUM 145 mmol/L (136-145)
[2017-09-07 07:06] LABS: ALKALINE PHOSPHATASE 59 U/L (45-117); TOTAL PROTEIN 5.2 gm/dL (6.4-8.2)
[2017-09-07 08:00] VITALS: BP 108/48
[2017-09-07 12:00] VITALS: BP 114/56
[2017-09-07 16:00] VITALS: BP 130/71
[2017-09-07 20:00] VITALS: BP 101/55
[2017-09-08] VITALS (9 sets, daily range): BP systolic 102–151; BP diastolic 51–88
[2017-09-08 06:09] LABS: ALBUMIN 2.9 gm/dl (3.1-4.5); ALKALINE PHOSPHATASE 57 U/L (45-117); BUN 29 mg/dl (7-24); CHLORIDE 96 mmol/L (98-107); CREATININE 1.02 mg/dL (0.55-1.02); POTASSIUM 3.8 mmol/L (3.5-5.1); SGOT/AST 24 IU/L (3-35); SGPT/ALT 37 U/L (12-78); SODIUM 141 mmol/L (136-145); TOTAL PROTEIN 5.3 gm/dL (6.4-8.2)
[2017-09-09 00:38] VITALS: BP 115/59
[2017-09-09 05:15] LABS: BASO % 0.1 % (0.0-1.0); HEMATOCRIT 36.8 % (37.0-47.0); HEMOGLOBIN 10.7 g/dl (12.0-16.0); LYMPH # 1.9 10*3/uL (1.3-4.4); LYMPH % 15.4 % (27.0-41.0); MEAN CELL VOLUME 102.8 fl (81.0-99.0); MEAN CORPUSCULAR HGB 29.9 pg (27.0-31.0); MEAN CORPUSCULAR HGB CONC 29.1 g/dl (33.0-37.0); MEAN PLATELET VOLUME 10.3 fl (9.6-12.3); MONO % 7.7 % (3.0-9.0); NEUT # 9.4 10*3/uL (2.3-7.9); NEUT % 75.9 % (47.0-73.0); PLATELET COUNT AUTOMATED 217 10*3/uL (130-400); RED BLOOD COUNT 3.58 10*6/uL (4.10-5.10); RED CELL DISTRI WIDTH 13.3 % (0-14.5); WHITE BLOOD COUNT 12.4 10*3/uL (4.8-10.8)
[2017-09-09 05:37] LABS: CREATININE 1.15 mg/dL (0.55-1.02); POTASSIUM 3.7 mmol/L (3.5-5.1)
[2017-09-09 08:00] VITALS: BP 115/53
[2017-09-09] MEDS ORDERED: ACETAZOLAMIDE250 MG PO (10:44)
[2017-09-09] MEDS ORDERED: PREDNISONE10 MG PO (10:44)
[2017-09-09] MEDS ORDERED: VITAMIN D-32000 UNIT PO (10:44)
[2017-09-09] MEDS ORDERED: ALPARAZOLAM0.5 MG PO (11:49)
[2017-09-09] MEDS ORDERED: TRAMADOL HCL50 MG PO (11:52)
[2017-09-09 16:08] LABS: ACID FAST SPEC PROCESSING Concentration (.)
== END 2017-09-09 15:00 | disposition other institution (70) | DRG 871 ==
LOC: ED 11:40 → 4E 14:14 → EDHOLD 14:14 → ICCU 14:14 → 5E 14:14 → ICCU 08-31 10:24 → 4E 09-01 13:35
PROVIDERS: Emergency Medicine; Family Medicine; Internal Medicine; Internal Medicine Critical Care Medicine; Nurse Practitioner Family; Radiology Diagnostic Radiology
PROC: 5A1935Z Respiratory Ventilation, Less than 24 Consecutive Hours (ICD-10-PCS; 2017-09-02)
PROC: 5A1935Z Respiratory Ventilation, Less than 24 Consecutive Hours (ICD-10-PCS; 2017-09-03)
PROC: 5A1935Z Respiratory Ventilation, Less than 24 Consecutive Hours (ICD-10-PCS; 2017-09-04)
PROC: 5A1935Z Respiratory Ventilation, Less than 24 Consecutive Hours (ICD-10-PCS; 2017-09-05)
PROC: 5A1935Z Respiratory Ventilation, Less than 24 Consecutive Hours (ICD-10-PCS; 2017-09-06)
PROC: 5A1935Z Respiratory Ventilation, Less than 24 Consecutive Hours (ICD-10-PCS; principal; 2017-09-08)
PROC: 0BC58ZZ Extirpation of Matter from Right Middle Lobe Bronchus, Via Natural or Artificial Opening Endoscopic (ICD-10-PCS; principal; 2017-09-08)
PROC: 0BC78ZZ Extirpation of Matter from Left Main Bronchus, Via Natural or Artificial Opening Endoscopic (ICD-10-PCS; principal; 2017-09-08)
PROC: 0BC38ZZ Extirpation of Matter from Right Main Bronchus, Via Natural or Artificial Opening Endoscopic (ICD-10-PCS; principal; 2017-09-08)
PROC: 0BC98ZZ Extirpation of Matter from Lingula Bronchus, Via Natural or Artificial Opening Endoscopic (ICD-10-PCS; principal; 2017-09-08)
PROC: 0BC48ZZ Extirpation of Matter from Right Upper Lobe Bronchus, Via Natural or Artificial Opening Endoscopic (ICD-10-PCS; principal; 2017-09-08)
PROC: 0BC88ZZ Extirpation of Matter from Left Upper Lobe Bronchus, Via Natural or Artificial Opening Endoscopic (ICD-10-PCS; principal; 2017-09-08)
PROC: 0BC68ZZ Extirpation of Matter from Right Lower Lobe Bronchus, Via Natural or Artificial Opening Endoscopic (ICD-10-PCS; principal; 2017-09-08)
PROC: 0BC18ZZ Extirpation of Matter from Trachea, Via Natural or Artificial Opening Endoscopic (ICD-10-PCS; principal; 2017-09-08)
PROC: 0BCB8ZZ Extirpation of Matter from Left Lower Lobe Bronchus, Via Natural or Artificial Opening Endoscopic (ICD-10-PCS; principal; 2017-09-08)
PROC: 5A1935Z Respiratory Ventilation, Less than 24 Consecutive Hours (ICD-10-PCS; 2017-09-09)
DX: A41.9 Sepsis, unspecified organism (principal); J18.9 Pneumonia, unspecified organism; N17.0 Acute kidney failure with tubular necrosis; J96.21 Acute and chronic respiratory failure with hypoxia; J96.22 Acute and chronic respiratory failure with hypercapnia; E87.3 Alkalosis; J44.1 Chronic obstructive pulmonary disease with (acute) exacerbation; J44.0 Chronic obstructive pulmonary disease with (acute) lower respiratory infection; F41.1 Generalized anxiety disorder; I25.10 Atherosclerotic heart disease of native coronary artery without angina pectoris; R73.9 Hyperglycemia, unspecified; I10 Essential (primary) hypertension; J20.9 Acute bronchitis, unspecified; R65.20 Severe sepsis without septic shock; M19.90 Unspecified osteoarthritis, unspecified site; K21.9 Gastro-esophageal reflux disease without esophagitis; Z99.81 Dependence on supplemental oxygen; Z79.899 Other long term (current) drug therapy; Z85.50 Personal history of malignant neoplasm of unspecified urinary tract organ; Z95.5 Presence of coronary angioplasty implant and graft; Z90.710 Acquired absence of both cervix and uterus; Z87.891 Personal history of nicotine dependence; Z82.49 Family history of ischemic heart disease and other diseases of the circulatory system; Z80.1 Family history of malignant neoplasm of trachea, bronchus and lung; Z83.3 Family history of diabetes mellitus

== ENCOUNTER 2018-07-20 20:35 | Emergency (ER) | payer OTHER ==
[~2018-07-20] VITALS: Ht 160 cm; Wt 69.9 kg
--- NOTE | ~2018-07-20 | EKG ---
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
[~2018-07-20 20:35] MED LIST changes: +ACETAZOLAMIDE250 MG PO; +ALPARAZOLAM0.5 MG PO; +Ipratropium Brom3 ML INH; +LIPITOR20 MG PO; +PREDNISONE10 MG PO; +SYMB160 INH; +VITAMIN D-32000 UNIT PO
[2018-07-20 20:36] VITALS: BP 125/62
[2018-07-20 21:49] LABS: BASO # 0.1 10*3/uL (0.0-0.1); BASO % 0.5 % (0.0-1.0); EOS # 0.1 10*3/uL (0.0-0.4); EOS % 0.9 % (1.0-4.0); HEMATOCRIT 40.5 % (37.0-47.0); HEMOGLOBIN 12.5 g/dl (12.0-16.0); LYMPH # 1.2 10*3/uL (1.3-4.4); LYMPH % 9.5 % (27.0-41.0); MEAN CELL VOLUME 98.5 fl (81.0-99.0); MEAN CORPUSCULAR HGB 30.4 pg (27.0-31.0); MEAN CORPUSCULAR HGB CONC 30.9 g/dl (33.0-37.0); MEAN PLATELET VOLUME 11.9 fl (9.6-12.3); MONO # 1.1 10*3/uL (0.1-1.0); MONO % 8.9 % (3.0-9.0); NEUT # 10.2 10*3/uL (2.3-7.9); NEUT % 79.8 % (47.0-73.0); PLATELET COUNT AUTOMATED 191 10*3/uL (130-400); RED BLOOD COUNT 4.11 10*6/uL (4.10-5.10); RED CELL DISTRI WIDTH 12.7 % (0-14.5); WHITE BLOOD COUNT 12.8 10*3/uL (4.8-10.8)
[2018-07-20 22:19] LABS: ALBUMIN 3.3 gm/dl (3.1-4.5); ALKALINE PHOSPHATASE 98 U/L (45-117); BUN 26 mg/dl (7-24); CHLORIDE 97 mmol/L (98-107); CREATININE 1.32 mg/dL (0.55-1.02); POTASSIUM 3.4 mmol/L (3.5-5.1); SGOT/AST 30 IU/L (3-35); SGPT/ALT 15 U/L (12-78); SODIUM 140 mmol/L (136-145); TOTAL PROTEIN 7.1 gm/dL (6.4-8.2)
[2018-07-20 22:34] LABS: TROPONIN I < 0.015 ng/ml (<0.045)
[2018-07-20] MEDS ORDERED: PREDNISONE50 MG PO (22:54)
[2018-07-20] MEDS ORDERED: AVPAK AZITHROM250 M1 PO (22:54)
[2018-09-17] MEDS ORDERED: B12,B-12,B 12500 MC1 PO (23:57)
[2018-09-17] MEDS ORDERED: PROVENTIL HFA6.7 GM INH (23:59)
[2018-09-18] MEDS ORDERED: OXYGEN NAS (00:05)
[2018-09-22] MEDS ORDERED: Carafate1 GM PO (11:55)
[2018-09-22] MEDS ORDERED: CALCIUM CARBON200 MG PO (11:55)
[2018-09-22] MEDS ORDERED: PREDNISONE10 MG PO (12:29)
== END 2018-07-20 23:01 | disposition home or self-care (01) ==
LOC: ED 20:35
PROVIDERS: Student in an Organized Health Care Education/Training Program
DX: J44.1 Chronic obstructive pulmonary disease with (acute) exacerbation (principal); I25.10 Atherosclerotic heart disease of native coronary artery without angina pectoris; I10 Essential (primary) hypertension; K21.9 Gastro-esophageal reflux disease without esophagitis; Z87.891 Personal history of nicotine dependence; Z90.710 Acquired absence of both cervix and uterus; Z79.899 Other long term (current) drug therapy

== ENCOUNTER 2018-12-20 14:26 | Inpatient (IN) | payer OTHER ==
[~2018-12-20] VITALS: Ht 160 cm; Wt 67.1 kg
--- NOTE | ~2018-12-20 | EKG ---
[place], [place] ELECTROCARDIOGRAM REPORT NAME: DAMION AMOR UNIT #: [id number] ROOM: 522 DOCTOR: JOSE DRAFT REPORT BIRTHDATE: [birth year] [facility] Test Date: 2018-12-20 Test Time: 17:20:24 Pat Name: DAMION AMOR Department: Room: 522 Gender: F Revenue Specialist: Steff Turner : 1940 Requested By: BHAVNA VAN Order Number: [id number] Reading MD: Declan Mahajan MD Measurements Intervals [place] Rate: 83 P: [place]: QRS: 82 QRSD: 86 T: 44 QT: 409 QTc: 481 Interpretive Statements Sinus rhythm Anteroseptal infarct, old Electronically Signed On 12-21-2018 5:47:56 PDT by Declan Mahajan MD CM:EKGRPT:ELECTROCARDIOGRAM REPORT 1720 0547 BHAVNA GARCIA DRAFT REPORT BHAVNA VAN MD
--- NOTE | ~2018-12-20 | CON ---
[place], [place] REPORT OF CONSULTATION NAME: DAMION AMOR [facility] [id number] UNIT #: [id number] ROOM: 522 DOCTOR: GREG PA MD BIRTHDATE: [birth year] DOS: 12/23/2018 PULMONARY CONSULTATION, EVALUATION AND MANAGEMENT CONSULTATION REQUESTED BY: Hospitalist services. REASON FOR CONSULTATION: To assess the patient's symptoms of shortness of breath with exacerbation of COPD. HISTORY OF PRESENT ILLNESS: A 78-year-old white female patient who has been known to me with past history of COPD and chronic hypoxic respiratory failure, using oxygen supplementation. The patient presented to the Emergency Room as she has been experiencing increased symptoms of shortness of breath about a couple of days. She has been also complaining of chest pain, which is described as nonspecific as well. The patient was complaining of symptoms of some nonproductive cough, but not noted severe cough. Wheezing was reported with tightness in the chest as well. She has been noted grieving about her grandson who recently as well. She presented to the Emergency Room where she has been assessed in the hospital for further care. This morning, the patient was noted still experiencing increased shortness of breath that occurs with exertion with increased symptoms of shortness of breath. She was also complaining of cough, which has been noted nonproductive. Denies symptoms of hemoptysis. REVIEW OF SYSTEMS: CONSTITUTIONAL SYMPTOMS: Fatigue and tiredness noted without any symptoms of fever or chills. EYES: Denies any burning, redness, or tenderness. EARS, NOSE, AND THROAT SYMPTOMS: No sore throat, hoarseness, otalgia, postnasal drainage or epistaxis. CARDIOVASCULAR: Denies anginal pain, edema, or pain of the lower extremities. GASTROINTESTINAL SYMPTOMS: Denies dysphagia, nausea, vomiting, diarrhea, abdominal pain, hematemesis, melena, or hematochezia. GENITOURINARY SYMPTOMS: No dysuria, suprapubic pain, or hematuria. MUSCULOSKELETAL: No acute joint pain, redness, or tenderness. CENTRAL NERVOUS SYSTEM: Denies dizziness, headache, diplopia or syncopal episode. Remaining systems were reviewed and they were noted all negative. PAST MEDICAL HISTORY: 1. COPD. 2. Chronic hypoxic respiratory failure. 3. Essential hypertension. 4. Gastroesophageal reflux. 5. Endometrial cancer with complete hysterectomy. 6. General anxiety disorder as well. 7. Past history of shingles. 8. Coronary artery disease. [place], [place] REPORT OF CONSULTATION NAME: DAMION AMOR UNIT #: [id number] ROOM: 522 DOCTOR: FRANK COFFMAN MD,GREG BIRTHDATE: [birth year] PAST SURGICAL HISTORY: 1. Cardiac catheterization, coronary stents insertion in 2009. 2. Complete hysterectomy. 3. Tonsillectomy. SOCIAL HISTORY: The patient lives at home. Tobacco use was noted with heavy tobacco use, started as a very younger as two packs of cigarettes a day, which was discontinued in 2017. Denies any history of alcohol use or illicit drugs. FAMILY HISTORY: Both parents have been . History about father was unknown. Mother with complication related to heart problem. HOME MEDICATIONS: Listed as Proventil HFA inhaler, Xanax, Lipitor, Symbicort, calcium carbonate, Plavix, vitamin B12, DuoNeb, metoprolol tartrate, oxygen 2 liter nasal cannula continuous use, Protonix, Carafate, tramadol and Dyazide. CURRENT MEDICATIONS: Administered were noted as use of Lovenox for DVT prophylaxis, Protonix, Lipitor, Zofran p.r.n., Carafate, hydrochlorothiazide, vitamin B12, metoprolol tartrate, Plavix, calcium carbonate, tramadol, Pulmicort Respules, Solu-Medrol 40 mg b.i.d., Rocephin and Zithromax. DRUG ALLERGIES: Noted no known drug allergies. PHYSICAL EXAMINATION: GENERAL: A 78-year-old female patient who has been currently noted to be awake and alert, but anxious, mildly shortness of breath at rest was noted. Height of 5 feet 3 inches, weight 148 pounds, BMI 26.2. VITAL SIGNS: Recorded as normal temperature, respiratory rate 18-20, heart rate 85-103, blood pressure ____. Pulse oxygen saturation on 3 liters nasal cannula was 95-99% saturation recorded. HEENT: Examination shows head was atraumatic. Eyes nonicterus. NECK: Supple. CARDIOVASCULAR: S1, S2 audible. LUNGS: Decreased breath sounds in the lungs bilaterally. There were no crackles noted. Scattered wheezing. ABDOMEN: Soft, nontender. EXTREMITIES: Without acute edema. SKIN: Visible skin with no lesions or rashes. MUSCULOSKELETAL: Without acute deformities. CENTRAL NERVOUS SYSTEM: Grossly intact. LABORATORY DATA: The CBC that was done on 12/20/2018 on admission, WBC count 12.2. Hemoglobin and hematocrit, and platelets were normal. On 12/20/2018, BUN 23, creatinine 1.24, glucose 100. CO2 was 40. CBC that was done yesterday, WBC count 12.3. Hemoglobin and hematocrit, and platelet count remains normal. BMP yesterday, BUN 28, creatinine 1.37, pCO2 of 41. CBC of this morning, WBC count 11.9, hemoglobin 11.6, platelet count normal. BMP this morning, BUN 28, creatinine 1.48. Glucose 108. CO2 was noted elevated as 50. The chest x-ray that was done, one-view in the Emergency Room was reviewed noted [place], [place] REPORT OF CONSULTATION NAME: DAMION AMOR UNIT #: [id number] ROOM: 522 DOCTOR: GREG PA MD BIRTHDATE: [birth year] with findings of changes of advanced COPD noted with hyperinflation of the lungs. IMPRESSION: 1. The patient who has been currently noted with acute exacerbation of chronic obstructive pulmonary disease, possibility of acute on chronic hypercapnic respiratory failure. 2. Metabolic alkalosis. 3. Acute kidney injury secondary to intravascular volume depletion and use of corticosteroids was suspected. 4. General anxiety disorder as well. There was no evidence of acute pneumonia. Acute bronchitis was suspected, already treated with antibiotics. 5. History of past coronary artery disease and medical illness which were known. PLAN OF MANAGEMENT: The patient will be continued on the corticosteroids and bronchodilators. Arterial blood gases will be ordered. For the severe metabolic alkalosis noted, she will be started on Diamox. She will be ____ intravenous fluid to help improve the kidney function, to improve the intravascular volume depletion. Monitor kidney function closely. Continue DVT prophylaxis ____ as well. Other therapy, plan of management, additional treatment changes will be recommended based on the progression of the illness. Supportive care, other treatment plan of management as in progress. Usual care. After the arterial blood gas, the patient will be ordered the BiPAP if tolerated to help improve the suspected hypercapnia. Monitoring of the labs, especially for potassium was ordered because use of Diamox. Code status was noted a full code with close monitoring will be continued in case of worsening respiratory status. She may need to be transferred to the intensive care unit and may require intubation and mechanical ventilation in case of worsening of the respiratory failure and not responding to the current noninvasive treatment. Thanks for allowing me to participate in the care of this patient. GREG MARIE MD CM:CONSTR:REPORT OF CONSULTATION 1015 12/23/18 1441 interface
--- NOTE | ~2018-12-20 | PR ---
[place], [place] PROGRESS NOTE NAME: DAMION AMOR UNIT #: [id number] ROOM: 522 DOCTOR: FRANK COFFMAN MD,GREG BIRTHDATE: [birth year] DOS: 12/24/2018 PULMONARY PROGRESS NOTE SUBJECTIVE: She has been started on the bilevel treatment yesterday because of the hypercapnia, which is noted acute on chronic. She was noted less short of breath this morning. Tachypnea noted decreased. Denies symptoms of fever or chills. Still notices shortness of breath with exertion. Denies symptoms of chest pain reported. Denies symptoms of hemoptysis or wheezing. Denies any pain of the lower extremity or edema. General weakness for a week, was still noted persistent. OBJECTIVE: VITAL SIGNS: For the patient recorded this morning is normal temperature, respiratory rate 18, heart rate 76, blood pressure 142/75. Pulse oxygen saturation recorded on 3 liters nasal cannula 94% saturation. HEENT: Examination shows head was atraumatic. Eyes nonicterus. NECK: Supple. CARDIOVASCULAR: S1, S2 audible. LUNGS: Noted without any wheezing or crackles. Breath sounds are still noted severely decreased bilaterally. ABDOMEN: Soft, nontender. Bowel sounds are present. EXTREMITIES: Noted without edema. MUSCULOSKELETAL: Without any deformity. SKIN: Visible skin, no lesions or rashes. CENTRAL NERVOUS SYSTEM: General weakness, but there were no focal deficits. LABORATORY DATA: Arterial blood gas done initially 3 liters nasal cannula yesterday morning after I assessed the, pH of 7.33, pCO2 of 89, pO2 of 131. On 3 liters nasal cannula, repeat arterial blood gas that was done on the bilevel treatment 09/12, pH of 7.31, pCO2 of 88, pO2 of 81.7. Arterial blood gas done this morning, pH of 7.35, pCO2 of 70, pO2 of 79.9. The patient has been using the bilevel treatment 10/02 from yesterday. IMPRESSION: The patient with: 1. Severe acute on chronic hypercapnia hypoxic respiratory failure. 2. Severe general debility. 3. Metabolic alkalosis was also noted as well. 4. Acute exacerbation of chronic obstructive pulmonary disease and debility secondary to ongoing multiple medical illnesses including pulmonary disease. PLAN OF MANAGEMENT: Continue the Diamox at this time using the BiPAP. Bronchodilators, oxygen supplementation. The patient needs to be assessed for the home BiPAP use with noninvasive ventilator to reduce the quality of life and reduce the hospitalization and decreasing exacerbation of chronic obstructive pulmonary disease. Usual care, other therapy, plan of management. Supportive care. The patient will be continued on Diamox at this time and also continued the BiPAP, bronchodilators and oxygen supplementation. The patient required the [place], [place] PROGRESS NOTE NAME: DAMOIN AMOR UNIT #: [id number] ROOM: 522 DOCTOR: FRANK COFFMAN MD,GREG BIRTHDATE: [birth year] noninvasive ventilator at home to improve the quality of life to reduce the hospitalization. Decrease exacerbations of chronic obstructive pulmonary disease. Other usual medical management, plan of care. We will continue with supportive care to be continued. GREG MARIE MD CM:PNTRANS [phone] GREG COFFMAN MD 12/29/18 1147 interface
--- NOTE | ~2018-12-20 | EKG ---
[place], [place] ELECTROCARDIOGRAM REPORT NAME: DAMION AMOR UNIT #: [id number] ROOM: 522 DOCTOR: JOSE DRAFT REPORT BIRTHDATE: [birth year] [facility] Test Date: 2018-12-20 Test Time: 19:59:45 Pat Name: DAMION AMOR Department: Room: 522 Gender: F Access Director: Steff Turner : 1940 Requested By: BHAVNA VAN Order Number: [id number] Reading MD: Declan Mahajan MD Measurements Intervals [place] Rate: 93 P: 84 [place]: 203 QRS: 82 QRSD: 86 T: 50 QT: 371 QTc: 462 Interpretive Statements Sinus rhythm Probable anteroseptal infarct, old Compared to ECG 09/21/2018 00:10:18 Myocardial infarct finding now present Electronically Signed On 12-21-2018 5:52:01 PDT by Declan Mahajan MD CM:EKGRPT:ELECTROCARDIOGRAM REPORT [id number] BHAVNA GARCIA DRAFT REPORT BHAVNA VAN MD
--- NOTE | ~2018-12-20 | EKG ---
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
--- NOTE | ~2018-12-20 | PR ---
[place], [place] PROGRESS NOTE NAME: DAMION AMOR UNIT #: [id number] ROOM: 522 DOCTOR: GREG PA MD BIRTHDATE: [birth year] DOS: 12/25/2018 PULMONARY PROGRESS NOTE SUBJECTIVE: She has been noted with gradual reduction in symptoms of shortness of breath. There were no symptoms of fever or chills or hemoptysis reported by the patient. Denies symptoms of headache or diplopia. Shortness of breath improving. The patient has used the BiPAP and also a noninvasive ventilator to be obtained from the [employer] with the process noted in progress. This morning, the patient was seen, she was comfortably resting on the bed this morning, using oxygen supplement nasal cannula. OBJECTIVE: VITAL SIGNS: For the patient which were recorded this morning as normal temperature, respiratory rate 16, heart rate 90, blood pressure 112/53 previously recorded. Pulse ox saturation on BiPAP 98% on 3 liters nasal cannula 95% saturation. HEENT: Head was atraumatic. Eyes nonicterus. NECK: Supple. CARDIOVASCULAR: S1, S2 is audible. LUNGS: General reduction in breath sounds, partial improvement. ABDOMEN: Soft, nontender. Bowel sounds present. EXTREMITIES: No new change. LABORATORY DATA: BMP this morning, BUN 37, creatinine 1.53. Carbon dioxide of 42. IMPRESSION: 1. Acute on chronic severe hypercapnic hypoxemic respiratory failure, acute exacerbation of chronic obstructive pulmonary disease. 2. Improving metabolic alkalosis. She was noted with a CO2 level of 42. PLAN OF MANAGEMENT: Continue Diamox, bronchodilators, oxygen supplementation, and corticosteroids. Await for the availability of noninvasive ventilator prior to home discharge. [place], [place] PROGRESS NOTE NAME: DAMION AMOR UNIT #: [id number] ROOM: 522 DOCTOR: GREG PA MD BIRTHDATE: [birth year] GREG MARIE MD CM:PNTRANS [phone] GREG COFFMAN MD 12/25/18 1509 interface
[~2018-12-20 14:26] MED LIST changes: +AVPAK AZITHROM250 M1 PO; +B12,B-12,B 12500 MC1 PO; +CALCIUM CARBON200 MG PO; +Carafate1 GM PO; +PREDNISONE50 MG PO; +PROVENTIL HFA6.7 GM INH
[2018-12-20 14:27] VITALS: BP 140/80
[2018-12-20 14:39] LABS: BASO # 0.1 10*3/uL (0.0-0.1); BASO % 0.4 % (0.0-1.0); EOS # 0.1 10*3/uL (0.0-0.4); EOS % 0.8 % (1.0-4.0); HEMATOCRIT 41.1 % (37.0-47.0); HEMOGLOBIN 12.4 g/dl (12.0-16.0); LYMPH # 1.6 10*3/uL (1.3-4.4); LYMPH % 12.8 % (27.0-41.0); MEAN CORPUSCULAR HGB 30.2 pg (27.0-31.0); MEAN CORPUSCULAR HGB CONC 30.2 g/dl (33.0-37.0); MEAN PLATELET VOLUME 11.5 fl (9.6-12.3); MONO # 0.9 10*3/uL (0.1-1.0); MONO % 7.6 % (3.0-9.0); NEUT # 9.6 10*3/uL (2.3-7.9); NEUT % 78.1 % (47.0-73.0); PLATELET COUNT AUTOMATED 217 10*3/uL (130-400); RED BLOOD COUNT 4.11 10*6/uL (4.10-5.10); RED CELL DISTRI WIDTH 12.1 % (0-14.5); WHITE BLOOD COUNT 12.2 10*3/uL (4.8-10.8)
[2018-12-20 14:57] LABS: ALBUMIN 3.6 gm/dl (3.1-4.5); ALKALINE PHOSPHATASE 63 U/L (45-117); BUN 23 mg/dl (7-24); CHLORIDE 94 mmol/L (98-107); CREATININE 1.24 mg/dL (0.55-1.02); POTASSIUM 3.7 mmol/L (3.5-5.1); SGOT/AST 23 IU/L (3-35); SGPT/ALT 10 U/L (12-78); SODIUM 139 mmol/L (136-145); TOTAL PROTEIN 6.9 gm/dL (6.4-8.2)
[2018-12-20 14:59] LABS: TROPONIN I < 0.015 ng/ml (<0.045)
[2018-12-20 15:41] LABS: ACT PARTIAL THROMBO TIME 24.8 SECONDS (20.0-32.1); INTERNATIONAL NORM RATIO 0.9 (2.0-3.5)
[2018-12-20 16:00] VITALS: BP 137/61
[2018-12-20 17:43] VITALS: BP 137/61
--- NOTE | 2018-12-20 17:43 | NUR ---
Time: 1742 A 78 year old FEMALE admitted to under services of MAGI BRYANT DO. Pt. arrived via bed from ER. Chief complaint: SHORTNESS OF BREATH. PT APPEARS ALERT & ORIENTED X3. ORIENTED TO UNIT, ROOM AND CALL LIGHT. QUESTIONS ANSWERED. BELONGINGS ACCOUNTED FOR. INITIAL ASSESSMENT COMPLETED - SEE ADMISSION ASSESSMENT. ORE WASHER APPLIED, PT IS NSR WITH A HEART RATE IN THE 80'S. BRIGETTE TSAI
[2018-12-20 20:00] VITALS: BP 125/64
[2018-12-21] VITALS: BP 101/44
[2018-12-21 06:34] LABS: BASO % 0.2 % (0.0-1.0); CREATININE 1.31 mg/dL (0.55-1.02); HEMATOCRIT 41.6 % (37.0-47.0); HEMOGLOBIN 12.3 g/dl (12.0-16.0); LYMPH # 0.6 10*3/uL (1.3-4.4); LYMPH % 9.7 % (27.0-41.0); MEAN CELL VOLUME 101.7 fl (81.0-99.0); MEAN CORPUSCULAR HGB 30.1 pg (27.0-31.0); MEAN CORPUSCULAR HGB CONC 29.6 g/dl (33.0-37.0); MEAN PLATELET VOLUME 12.1 fl (9.6-12.3); MONO # 0.1 10*3/uL (0.1-1.0); MONO % 1.1 % (3.0-9.0); NEUT # 5.6 10*3/uL (2.3-7.9); NEUT % 88.5 % (47.0-73.0); PHOSPHOROUS 3.9 mg/dL (2.5-4.9); PLATELET COUNT AUTOMATED 216 10*3/uL (130-400); POTASSIUM 3.9 mmol/L (3.5-5.1); RED BLOOD COUNT 4.09 10*6/uL (4.10-5.10); WHITE BLOOD COUNT 6.4 10*3/uL (4.8-10.8)
--- NOTE | 2018-12-21 07:10 | NUR ---
PT SOB AT REST. PULLED UP IN BED, PULSE OX 87-88% 3L. RESPIRATORY CALLED. PULSE OX 92% ON 4LITERS. BP 120/57.
--- NOTE | 2018-12-21 07:25 | NUR ---
BREATHING TX GIVEN. PT SOB IS BETTER. PULSE OX 94% BACK DOWN TO 3LITERS. RESP-EASY AND REGULAR. CALL LIGHT IN REACH.
[2018-12-21 08:00] VITALS: BP 120/57
--- NOTE | 2018-12-21 08:10 | NUR ---
DR. LUTHER CALLED REGARDING PT C/O BURNING IN EPIGASTRIC AREA. PT MEDICATIONS NEED ORDERED MADE AWARE HE ORDERED CARAFATE AND XANAX FOR NOW.
--- NOTE | 2018-12-21 08:29 | NUR ---
PT NAUSIATED SITTING UP IN BED. MEDICATED WITH ZOFRAN IV. DR. TALBOT IN TO SEE PT. AWARE OF NAUSEA. CALL LIGHT IN REACH.
--- NOTE | 2018-12-21 08:47 | NUR ---
MEDICATED WITH XANAX PO FOR ANXIETY. EXECUTIVE COMMUNICATIONS MANAGER IN WITH PT TO DO ECHO. CALL LIGHT IN REACH.
--- NOTE | 2018-12-21 09:12 | NUR ---
PHYSICAL THERAPY Nursing screen received and chart reviewed. Physical therapy referral received. Thank you. Hope Cuadra,PT,DPT.
--- NOTE | 2018-12-21 10:00 | NUR ---
PT C/O HEARTBURN. MEDICATED WITH TUMS PO FOR INDIGESTION, SEE EMAR.
--- NOTE | 2018-12-21 10:30 | NUR ---
PT RESTING IN BED. RESP-EASY AND REGULAR. NO C/O AT THIS TIME. CALL LIGHT IN REACH.
--- NOTE | 2018-12-21 10:42 | NUR ---
PHYSICAL THERAPY PT evaluation complete, 5E. Full evaluation and details to follow. Low completixy evaluation per chart review and evaluation (18355). PT to progress with transfers, gait, and LE strength. Recommend home health PT/Nursing at discharge. Thank you, Ethel Orozco, SPT. Hope Cuadra,PT,DPT.
--- NOTE | 2018-12-21 12:23 | NUR ---
Deputy [employer] in to talk to patient. Patient states lives at HOME with ALONE. There are NO steps in the home. Physician: MARLEEN [facility]: [facility] Home health services: NONE Patient's level of ADLs: INDEPENDENT Patient has working utilities: YES DME: OXYGEN, [employer]ABLE [employer] NEBUL[employer]ER. O2 COMPANY IS [employer] Follow-up physician's appointment after d/c: WILL BE MADE BY HOSPITALIST NURSE DIRECTOR ON DISCHARGE Does patient want to access PORTAL?: NO Discharge plan PT IS LIVING AT HOME ALONE AND IS INDEPENDENT IN HER CARE. TALKED WITH HER ABOUT HOME HEALTH AND SNF CARE, STATES SHE WILL THINK ABOUT IT. WILL FOLLOW UP WITH HER ON HER DECISION. PT STATES SHE WILL HAVE A RIDE HOME ON DISCHARGE.. DYLAN VELAZQUEZ
--- NOTE | 2018-12-21 13:20 | NUR ---
PT MEDICATED WITH ZOFRAN FOR NAUSEA PER ROUTINE ORDER, SEE EMAR. CALL LIGHT IN REACH.
--- NOTE | 2018-12-21 13:30 | NUR ---
TOLERATED ROUTINE IV MED WITH NO PROBLEM. NO C/O AT THIS TIME. CALL LIGHT IN REACH.
[2018-12-21 16:00] VITALS: BP 103/49
--- NOTE | 2018-12-21 16:20 | NUR ---
PT RESTING IN BED. TOLERATING ROUTINE IV MED WITH NO PROBLEM. CALL LIGHT IN REACH.
--- NOTE | 2018-12-21 16:49 | NUR ---
Nursing screen received and chart reveiwed. If patient should have a decline in ADLs please refer to OT for further evaluation. Thank you. Ami Hernandez OTR/l
--- NOTE | 2018-12-21 17:30 | NUR ---
PT C/O NAUSEA, MEDICATED WITH ZOFRAN IV PER ROUTINE MED WITH NO PROBLEM. ALSO MEDICATED WITH TUMS PER PRN ORDER FOR INDIGESTION AND BURNING.
[2018-12-21 20:00] VITALS: BP 114/51
--- NOTE | 2018-12-21 20:29 | NUR ---
24 HR chart check completed.
--- NOTE | 2018-12-21 21:00 | NUR ---
RESTING IN BED WITH NO ACUTE DISTRESS NOTED. RESPIRATIONS EASY. LUNGS DIMINISHED, CLEAR. PULSE OX 100% 3L, HUMIDIFICATION APPLIED. CLAIMS COUGH PROD YELLOW-GREEN, NONE NOTED UPON ASSESSMENT. TRACE BLE EDEMA. OFFERED AND EDUCATED REGARDING TEDS, PATIENT RECEPTIVE AND TEDS PLACED AT BEDSIDE. CALL LIGHT WITHIN REACH. NO VOICED COMPLAINTS
--- NOTE | 2018-12-21 21:51 | NUR ---
MEDICATED WITH XANAX AND TYLENOL PER PRN ORDER FOR COMPLAINTS OF ANXIETY AND GENERALIZED BODY ACHES. CALL LIGHT WITHIN REACH. WILL MONITOR FOR EFFECTIVENESS
--- NOTE | 2018-12-21 23:30 | NUR ---
MEDS EFFECTIVE. SLEEPING
[2018-12-22] VITALS: BP 101/52
--- NOTE | 2018-12-22 00:10 | NUR ---
AWAKE, C/O EPIGASTRIC BURNING. MEDICATED WITH ZOFRAN PER PRN ORDER. CALL LIGHT WITHIN REACH. WILL MONITOR FOR EFFECTIVENESS
--- NOTE | 2018-12-22 02:00 | NUR ---
MEDS EFFECTIVE. SLEEPING. RESPIRATIONS EASY. CALL LIGHT WITHIN REACH
--- NOTE | 2018-12-22 06:00 | NUR ---
SLEPT THROUGHOUT NIGHT WITH NO DISTRESS NOTED. RESPIRATIONS EASY. CALL LIGHT WITHIN REACH. NO VOICED COMPLAINTS THIS SHIFT
[2018-12-22 06:31] LABS: BASO % 0.1 % (0.0-1.0); LYMPH # 1.1 10*3/uL (1.3-4.4); LYMPH % 8.6 % (27.0-41.0); MEAN CELL VOLUME 101.3 fl (81.0-99.0); MEAN CORPUSCULAR HGB 30.4 pg (27.0-31.0); MEAN PLATELET VOLUME 11.6 fl (9.6-12.3); MONO # 0.4 10*3/uL (0.1-1.0); MONO % 3.4 % (3.0-9.0); NEUT # 10.7 10*3/uL (2.3-7.9); NEUT % 87.4 % (47.0-73.0); PLATELET COUNT AUTOMATED 194 10*3/uL (130-400); RED BLOOD COUNT 3.95 10*6/uL (4.10-5.10); RED CELL DISTRI WIDTH 11.9 % (0-14.5); WHITE BLOOD COUNT 12.3 10*3/uL (4.8-10.8)
[2018-12-22 06:48] LABS: CREATININE 1.37 mg/dL (0.55-1.02); POTASSIUM 3.8 mmol/L (3.5-5.1)
--- NOTE | 2018-12-22 06:58 | NUR ---
DR NOEL CONTACTED AND INFORMED OF CRITICAL CO2 41. NO NEW ORDERS RECEIVED
--- NOTE | 2018-12-22 08:20 | NUR ---
PT ASSISTED TO BATHROOM AND SITTING UP IN RECLINER CHAIR. SOB WTIH MINIMAL EXERTION. OXYGEN IN USE. PULSE OX 97% 4LITERS AT THIS TIME. CALL LIGHT IN REACH. SEE SHIFT ASSESSMENT.
--- NOTE | 2018-12-22 08:32 | NUR ---
SPOKE WITH DR. TALBOT REGARDING PT BP 102/58. HOLD HCTZ FOR NOW AND GIVE LOPRESSOR.
--- NOTE | 2018-12-22 08:48 | NUR ---
PT ANXIOUS. MEDICATED WITH XANAX ALSO MEDICATED WITH TUMS FOR INDIGESTION. SEE EMAR. CALL LIGHT IN REACH.
--- NOTE | 2018-12-22 09:30 | NUR ---
PT SITTING UP IN RECLINER. STATES MEDICATION WORKED. CALL LIGHT IN REACH.
--- NOTE | 2018-12-22 10:57 | NUR ---
PHYSICAL THERAPY Patient seen this am 1;1 for therapy visit and was sitting up in bedside chair upon therapist arrival. Patient was pleasant this morning voicing no c/o's pain and presented with continuous O2-3L via NC. Patient baseline SpO2 93%, HR 87 bpm at seated rest prior to completing several sit to stand transfers from low chair surface, Min/CGA. Patient ambulated ROLLS MILL OPERATOR/CGA, 50'x 1 demonstrating slow, steady perez, decreased stride and episode of increased SOB. Patient needed v/c for purse lip breathing technique to complete gait ex with brief standing rest break < 30 seconds. Patient returned to bedside chair recording SpO2 88%, HR 109 bpm. Patient returned to baseline stats following 45 second seated rest with v/c for purse lip breathing and remained with call light, tray table and telephone. Will continue per POC as tolerated, total treatment time 14 minutes. Star Key, PAD TUFTER
--- NOTE | 2018-12-22 11:24 | NUR ---
CONTINUES TO DENY HOME NEEDS AT THIS TIME. WILL CONTINUE TO FOLLOW.
[2018-12-22 12:00] VITALS: BP 121/62
[2018-12-22 16:00] VITALS: BP 113/55
--- NOTE | 2018-12-22 16:00 | NUR ---
RESTING IN RECLINER CHAIR. RESP-EASY AND REGULAR. OXYGEN IN USE. NO C/O A TTHIS TIME. CALL LIGHT IN REACH. SEE SHIFT ASSESSMENT.
--- NOTE | 2018-12-22 16:19 | NUR ---
PHYSICAL THERAPY CO-SIGN I approve of the Physical Therapy notes written above. THIEN PAINTER PT,DPT
--- NOTE | 2018-12-22 19:30 | NUR ---
24 HOUR CHART CHECK COMPLETE.
[2018-12-22 20:00] VITALS: BP 104/70; BP 99/48
--- NOTE | 2018-12-22 20:34 | NUR ---
PRN XANAX ADMINISTERED FOR PT C/O ANXIETY. WILL CONTINUE TO MONITOR.
--- NOTE | 2018-12-22 21:30 | NUR ---
PRN TUMS ADMINISTERED AT THIS TIME FOR PT C/O HEART BURN.
--- NOTE | 2018-12-22 21:45 | NUR ---
PT STATES SHE "FEELS LESS ANXIOUS". WILL CONTINUE TO MONITOR.
[2018-12-23] VITALS: BP 103/53
[2018-12-23 06:31] LABS: HEMATOCRIT 39.7 % (37.0-47.0); HEMOGLOBIN 11.6 g/dl (12.0-16.0); LYMPH # 0.8 10*3/uL (1.3-4.4); LYMPH % 6.5 % (27.0-41.0); MEAN CELL VOLUME 103.7 fl (81.0-99.0); MEAN CORPUSCULAR HGB 30.3 pg (27.0-31.0); MEAN CORPUSCULAR HGB CONC 29.2 g/dl (33.0-37.0); MEAN PLATELET VOLUME 11.9 fl (9.6-12.3); MONO # 0.7 10*3/uL (0.1-1.0); MONO % 5.7 % (3.0-9.0); NEUT # 10.4 10*3/uL (2.3-7.9); PLATELET COUNT AUTOMATED 198 10*3/uL (130-400); RED BLOOD COUNT 3.83 10*6/uL (4.10-5.10); WHITE BLOOD COUNT 11.9 10*3/uL (4.8-10.8)
[2018-12-23 06:44] LABS: CREATININE 1.48 mg/dL (0.55-1.02); POTASSIUM 4.6 mmol/L (3.5-5.1)
--- NOTE | 2018-12-23 07:04 | NUR ---
DR. FRANCISCO CONTACTED IN REGARDS TO CO2 LEVEL OF 50. NO NEW ORDERS AT THIS TIME.
[2018-12-23 08:00] VITALS: BP 129/74
--- NOTE | 2018-12-23 08:05 | NUR ---
DR. MARIE WAS ON THE FLOOR AWARE OF CONSULT.
--- NOTE | 2018-12-23 08:20 | NUR ---
PT RESTING IN BED.OXYGEN IN USE. SOB WITH MINIMAL EXERTION. NO C/O AT THIS TIME. CALL LIGHT IN REACH. SEE SHIFT ASSESSMENT.
--- NOTE | 2018-12-23 08:20 | NUR ---
PT RESTING IN BED. RESP-EASY AND REGULAR. NO C/O AT THIS TIME. OXYGEN IN USE. CALL LIGHT IN REACH.
[2018-12-23 08:30] VITALS: BP 106/64
--- NOTE | 2018-12-23 08:46 | NUR ---
MEDICATED WITH TUMS PO FOR INDIGESTION. ASSISTED UP TO RECLINER CHAIR TO EAT. CALL LIGHT IN REACH.
--- NOTE | 2018-12-23 09:30 | NUR ---
STATES MEDICATION WAS EFFECTIVE. NO C/O AT THIS TIME. CALL LIGHT IN REACH.
[2018-12-23 11:05] LABS: ABG BASE EXCESS 16.3 mmol/L (-2.0-2.0); ABG HCO3 46.2 mmol/l (22-26); ABG O2 SATURATION 99.5 % (95-97); ARTERIAL BLOOD GAS PH 7.33 (7.35-7.45)
[2018-12-23 11:08] LABS: ARTERIAL BLOOD GAS PCO2 89.5 mmHg (35-45)
--- NOTE | 2018-12-23 11:13 | NUR ---
TUFTING MACHINE OPERATOR spoke with the patient. Patient stated that she lost her grandson (43) on 11/14/18 very unexpectantly. She stated she and her other family memebers have been having a hard time coping with the loss. The patient stated she has been talking to her daughter and granddaughter about the loss. The patient stated she does not attend jain because she does not drive, but she does pray regularly. The patient stated at the moment she is not interested in talking to anyone about her grief, however she did say she wanted resources. TUFTING MACHINE OPERATOR provided the patient with a Mental Health Agency List, Brochures on Grief and Loss, and a List of local grief support groups, giving detail to the nearest one located in [place]. The patient said her family members may be interested in the support groups as well. TUFTING MACHINE OPERATOR provided the patient with her contact information if the patient decided she would like to talk further or needed additional information. -BLADIMIR Gay
--- NOTE | 2018-12-23 11:15 | NUR ---
RESPIRATORY SWAPNIL CALLED DR. MARIE AWARE OF CRITICAL ABG'S.
--- NOTE | 2018-12-23 11:42 | NUR ---
PT MEDICATED WITH XANAX PO FOR ANXIETY. RESPIRATORY ON THE FLOOR TO PLACE BIPAP. CALL LIGHT IN REACH.
[2018-12-23 12:00] VITALS: BP 124/86
--- NOTE | 2018-12-23 12:29 | NUR ---
PHYSICAL THERAPY Pt was on bi-pap machine when i went in had been with respiratory for a while. Pt states about 90 more minutes on bi-pap. Pt may not be seen today due to critical breathing issues Nancy Hayes SCRAP HOIST OPERATOR [phone]
--- NOTE | 2018-12-23 12:30 | NUR ---
PT RESTING IN BED WITH BIPAP ON. MEDICATION SEEMS TO BE EFFECTIVE. CALL LIGHT IN REACH.
--- NOTE | 2018-12-23 13:07 | NUR ---
IN TO TALK WITH PT AGAIN ABOUT HOME HEALTH. PT IS AGREEABLE TO HOME HEALTH NOW. LIST OF HOME HEALTH ANGENCIES PROVIDED TO LOOK AT TO SEE WHAT SHE WANTS. WILL FOLLOW UP WITH PT LATER TODAY.
[2018-12-23 14:53] LABS: ABG BASE EXCESS 13.9 mmol/L (-2.0-2.0); ABG HCO3 43.4 mmol/l (22-26); ABG O2 SATURATION 96.6 % (95-97); ARTERIAL BLOOD GAS PH 7.313 (7.35-7.45); ARTERIAL BLOOD GAS PO2 81.7 mmHg (80-90)
[2018-12-23 15:02] LABS: ARTERIAL BLOOD GAS PCO2 88.2 mmHg (35-45)
[2018-12-23 16:00] VITALS: BP 113/55
--- NOTE | 2018-12-23 19:30 | NUR ---
24 HOUR CHART CHECK COMPLETE.
--- NOTE | 2018-12-23 19:37 | NUR ---
PRN TUMS ADMINISTERED AT THIS TIME FOR PT C/O HEART BURN. WILL CONTINUE TO MONITOR.
[2018-12-23 20:00] VITALS: BP 150/75
--- NOTE | 2018-12-23 21:47 | NUR ---
PRN XANAX ADMINISTERED FOR PT C/O OF ANXIETY. WILL CONTINUE TO MONITOR.
--- NOTE | 2018-12-23 22:40 | NUR ---
PATIENT PLACED ON BIPAP / BACK UP RATE 8 FIO2 35%. PATIENT PLACED ON A 30 MINUTE RAMP DUE TO NOT TOLERATING PRESSURE. ENCOURAGED PATIENT TO WEAR BIPAP THROUGHOUT THE NIGHT ORDERED BY DR MARIE.
--- NOTE | 2018-12-23 23:13 | NUR ---
PATIENT REQUESTING TO TAKE BIAP OFF SO SHE COULD USE BATHROOM, PLACED BACK ON 3 L/M NC.
--- NOTE | 2018-12-23 23:22 | NUR ---
PATIENT BACK TO BED. PLACED BACK ON BIPAP 16/8 BACK UP RATE 8 FIO2 35%. PATIENT AGAIN STATES SHE CANNOT TOLERATE PRESSURE, RAMP SET FOR 30 MINUTES.
--- NOTE | 2018-12-23 23:45 | NUR ---
RESPIRATORY NOTIFIED THAT PT STATES IT IS HARD FOR HER TO BREATH WITH THE BIPAP. SHE STATES THAT IT "FEELS LIKE IT IS RETRICTING". PULSE OX 93%. RESPIRATORY SAID THEY WILL BE UP TO SEE THE PT.
[2018-12-24] VITALS: BP 142/75
--- NOTE | 2018-12-24 02:15 | NUR ---
SPOKE TO JUNIE FROM REPSPIRATORY REGARDING PTS CONCERN OF "NOT RECEIVING ENOUGH OXYGEN". PULSE OX IS 94% AT THIS TIME. RESPIRATORY IS ON THEIR WAY TO SEE THE PT.
--- NOTE | 2018-12-24 02:35 | NUR ---
ATIVAN GIVEN PER REQUEST BY DR. LUTHER FOR SEVERE ANXIETY. WILL CONTINUE TO MONITOR AND REASSESS.
[2018-12-24 06:22] LABS: BASO % 0.1 % (0.0-1.0); HEMATOCRIT 39.4 % (37.0-47.0); HEMOGLOBIN 11.6 g/dl (12.0-16.0); LYMPH % 10.4 % (27.0-41.0); MEAN CELL VOLUME 102.9 fl (81.0-99.0); MEAN CORPUSCULAR HGB 30.3 pg (27.0-31.0); MEAN CORPUSCULAR HGB CONC 29.4 g/dl (33.0-37.0); MEAN PLATELET VOLUME 11.9 fl (9.6-12.3); MONO # 0.9 10*3/uL (0.1-1.0); MONO % 9.1 % (3.0-9.0); NEUT # 7.9 10*3/uL (2.3-7.9); NEUT % 79.9 % (47.0-73.0); PLATELET COUNT AUTOMATED 180 10*3/uL (130-400); RED BLOOD COUNT 3.83 10*6/uL (4.10-5.10); RED CELL DISTRI WIDTH 12.1 % (0-14.5); WHITE BLOOD COUNT 9.8 10*3/uL (4.8-10.8)
[2018-12-24 06:32] LABS: ALBUMIN 3.2 gm/dl (3.1-4.5); CREATININE 1.34 mg/dL (0.55-1.02); POTASSIUM 3.9 mmol/L (3.5-5.1); TOTAL PROTEIN 5.9 gm/dL (6.4-8.2)
--- NOTE | 2018-12-24 06:55 | NUR ---
DR LUTHER NOTIFIED OF CRITICAL CO2 OF 47.
--- NOTE | 2018-12-24 07:20 | NUR ---
ARRIVED ON SHIFT, PATIENT RESTING WITH EYES CLOSED ON BIPAP, DID NOT AWAKEN FOR BEDSIDE REPORT, WHITE BOARD UPDATED.
[2018-12-24 07:21] LABS: ABG BASE EXCESS 14.5 mmol/L (-2.0-2.0); ABG O2 SATURATION 97.6 % (95-97); ARTERIAL BLOOD GAS PH 7.357 (7.35-7.45); ARTERIAL BLOOD GAS PO2 79.9 mmHg (80-90)
[2018-12-24 07:28] LABS: ARTERIAL BLOOD GAS PCO2 78.5 mmHg (35-45)
--- NOTE | 2018-12-24 07:30 | NUR ---
PATIENT TAKEN OFF OF BI-PAP, PLACED ON 3 L/M.
--- NOTE | 2018-12-24 08:24 | NUR ---
CALL PLACED TO DR. MARIE, WENT TO [employer] WHICH DID NOT SAY WHOM I WAS CALLING SO I SIS NOT LEAVE VOICEM[employer], CALL PLACED TO DR. TALBOT, SPOKE WITH DE. ARELLANO, ADVISED HIM THAT PC02 WAS 78.5 ON BIPAP,
--- NOTE | 2018-12-24 08:25 | NUR ---
PHYSICAL THERAPY Patient seen this am 1;1 for therapy visit and was resting supine in bed upon therapist arrival. Patient presents with continuos O2-3L via NC and records baseline SpO2 92%, HR 76 prior to treatment, also IV treatment. Patient tranfers supine to sit EOB with MOD A and was able to complete seated B LE therex, all planes, 2 x 10 reps each to increase LE strength. Patient demonstrated increased fatigue following ex and requested return back to supine in bed. Patient remained in bed with call light, tray table, telephone and bed alarm for safety. Will continue per POC as tolerated, total treatment time 16 minutes. Star Key, CLOTH WASHER OPERATOR
--- NOTE | 2018-12-24 09:51 | NUR ---
Shift chart check completed.
[2018-12-24 12:00] VITALS: BP 95/60
--- NOTE | 2018-12-24 12:09 | NUR ---
RECEIVED CALL FROM DR MARIE THAT HIS OFFICE IS GOING TO SEND TO [facility] TO GET PT A NON INVASIVE VENTOLATOR AT HOME. WILL CONTINUE TO FOLLOW.
[2018-12-24 16:00] VITALS: BP 110/54
[2018-12-24 20:00] VITALS: BP 111/54
--- NOTE | 2018-12-24 20:28 | NUR ---
24 HR chart check completed.
--- NOTE | 2018-12-24 21:00 | NUR ---
SLEEPING, AWAKENS EASILY. RESPIRATIONS EASY. LUNGS DIMINISHED. PULSE OX 97% 3L HUMIDIFIED. TRACE BLE EDEMA, TEDS PRESENT AT BEDSIDE. CALL LIGHT WITHIN REACH. NO VOICED COMPLAINTS
--- NOTE | 2018-12-24 23:45 | NUR ---
Pt refuses to wear the BiPap tonight. Pt is non-compliant with her home unit, Pt continues to be on 3L NC(home use). SpO2 96%.
[2018-12-25] VITALS: BP 102/53
--- NOTE | 2018-12-25 | NUR ---
SLEEPING. NO DISTRESS NOTED. RESPIRATIONS EASY. VSS. CONT P OX MAINTAINED.
--- NOTE | 2018-12-25 00:30 | NUR ---
Pt agreed to go on the BiPap 16/8 at FiO2 of 35%. Alarms on and audible.
--- NOTE | 2018-12-25 03:00 | NUR ---
SLEEPING. BI-PAP IN USE. CALL LIGHT WITHIN REACH.
--- NOTE | 2018-12-25 03:45 | NUR ---
Pt still sleeping on BiPap 35%. SpO2 94%.
--- NOTE | 2018-12-25 05:35 | NUR ---
BI-PAP HEARD ALARMING. CONT PULSE OX 78% RA PATIENT HAD REMOVED BI-PAP WITHOUT REAPPLYING O2. O2 APPLIED AT 3L HUMIDIFIED. PULSE OX RETURNED TO 92%. PATIENT ASSISTED TO BSC AND RETURNED TO BED. CALL LIGHT WITHIN REACH.
--- NOTE | 2018-12-25 06:00 | NUR ---
SLEEPING. O2 IN USE. CALL LIGHT WITHIN REACH. NO VOICED COMPLAINTS THIS SHIFT
[2018-12-25 07:44] LABS: ALBUMIN 3.2 gm/dl (3.1-4.5); CREATININE 1.53 mg/dL (0.55-1.02); POTASSIUM 3.2 mmol/L (3.5-5.1); TOTAL PROTEIN 5.8 gm/dL (6.4-8.2)
--- NOTE | 2018-12-25 08:00 | NUR ---
pt resting in bed. no c/o discomfort. vss. will continue to monitor.
--- NOTE | 2018-12-25 08:50 | NUR ---
DR. MARIE IN TO SEE PATIENT.
[2018-12-25] MEDS ORDERED: PREDNISONE10 MG PO (09:44)
[2018-12-25] MEDS ORDERED: ZOFRAN4 MG PO (11:56)
--- NOTE | 2018-12-25 11:59 | NUR ---
PT IS BEING DISCHARGED TODAY. REFERRAL WAS FAXED TO [facility] FOR HOME HEALTH. WILL CONTINUE TO FOLLOW.
--- NOTE | 2018-12-25 12:10 | NUR ---
PT DISCHARGED HOME AT THIS TIME. IV AND MANUFACTURING TECHNOLOGY ANALYST DISCONTINUED. DISCHARGE INSTRUCTIONS, FOLLOW UP CARE AND PRESCRIPTIONS DISCUSSED WITH PATIENT AND DAUGHTER WHO WAS IN THE ROOM. PT TRANSPORTED OUT VIA WHEELCHAIR TO PRIVATE CAR.
--- NOTE | 2018-12-25 15:07 | NUR ---
PHYSICAL THERAPY CO-SIGN I approve of the Physical Therapy notes written above. THIEN PAINTER PT,DPT
== END 2018-12-25 12:10 | disposition home health service (06) | DRG 871 ==
LOC: ED 14:26 → EDHOLD 17:02 → 5E 17:02
PROVIDERS: Emergency Medicine; Internal Medicine; Internal Medicine Critical Care Medicine; Student in an Organized Health Care Education/Training Program; ADMIT Emergency Medicine
DX: A41.9 Sepsis, unspecified organism (principal); J18.9 Pneumonia, unspecified organism; J96.22 Acute and chronic respiratory failure with hypercapnia; J96.21 Acute and chronic respiratory failure with hypoxia; J44.1 Chronic obstructive pulmonary disease with (acute) exacerbation; J44.0 Chronic obstructive pulmonary disease with (acute) lower respiratory infection; I24.9 Acute ischemic heart disease, unspecified; E87.3 Alkalosis; N17.9 Acute kidney failure, unspecified; K21.9 Gastro-esophageal reflux disease without esophagitis; M94.0 Chondrocostal junction syndrome [Tietze]; R73.9 Hyperglycemia, unspecified; E87.8 Other disorders of electrolyte and fluid balance, not elsewhere classified; Z53.29 Procedure and treatment not carried out because of patient's decision for other reasons; F41.1 Generalized anxiety disorder; E78.5 Hyperlipidemia, unspecified; E53.8 Deficiency of other specified B group vitamins; I10 Essential (primary) hypertension; I25.10 Atherosclerotic heart disease of native coronary artery without angina pectoris; M46.90 Unspecified inflammatory spondylopathy, site unspecified; D75.89 Other specified diseases of blood and blood-forming organs; E83.41 Hypermagnesemia; Z95.5 Presence of coronary angioplasty implant and graft; Z90.711 Acquired absence of uterus with remaining cervical stump; Z85.42 Personal history of malignant neoplasm of other parts of uterus; Z87.891 Personal history of nicotine dependence; Z82.49 Family history of ischemic heart disease and other diseases of the circulatory system; Z80.1 Family history of malignant neoplasm of trachea, bronchus and lung; Z83.3 Family history of diabetes mellitus; Z87.01 Personal history of pneumonia (recurrent); Z79.899 Other long term (current) drug therapy; Z79.02 Long term (current) use of antithrombotics/antiplatelets

== ENCOUNTER 2019-01-08 15:11 | Inpatient (IN) | payer OTHER ==
[~2019-01-08] VITALS: Ht 160 cm; Wt 64.0 kg
--- NOTE | ~2019-01-08 | PR ---
[place], [place] PROGRESS NOTE NAME: DAMION AMOR UNIT #: [id number] ROOM: 406 DOCTOR: GREG PA MD BIRTHDATE: [birth year] DOS: 01/12/2019 SUBJECTIVE: She was noted comfortable at this time without any acute distress, underwent the EGD yesterday for assessment of current symptoms. The patient was noted esophageal moniliasis, esophageal stricture with the balloon dilatation performed, the biopsy was also taken. She had been doing well with reduction and improvement in symptoms of dysphagia. Denies symptoms of fever or chills. Used the noninvasive ventilator. Denies any shortness of breath, coughing, or sputum expectoration. OBJECTIVE: VITAL SIGNS: Normal temperature, respiratory rate 16, heart rate 84, and blood pressure 90/50. Pulse oxygen saturation on 3 liters nasal cannula 98% saturation. HEENT: Head was atraumatic. Eyes nonicterus. NECK: Supple. CARDIOVASCULAR: S1, S2 audible. LUNGS: The patient was noted without any wheezing or crackles. ABDOMEN: Soft, nontender. Bowel sounds present. EXTREMITIES: No new change. LABORATORY DATA: The patient's CBC noted normal today. CMP: BUN 27, creatinine 1.22. Potassium was noted as normal. IMPRESSION: 1. The patient with a stable respiratory status, chronic hypercarbic hypoxic respiratory failure. ____ chronic obstructive pulmonary disease. 2. Esophageal stricture, status post dilatation with biopsy taken with pending results. Also, esophageal moniliasis was also reported by Dr. Holguin's operative report. PLAN OF MANAGEMENT: No change in pulmonary standpoint. Discharge planning per primary care physician. Continue other therapy, plan of management, care plan and treatment. Usual medical management and therapies. [place], [place] PROGRESS NOTE NAME: DAMION AMOR UNIT #: [id number] ROOM: 406 DOCTOR: GREG PA MD BIRTHDATE: [birth year] GREG MARIE MD CM:PNTRANS [id number] GREG COFFMAN MD 01/12/19 1131 interface
--- NOTE | ~2019-01-08 | PR ---
[place], [place] PROGRESS NOTE NAME: DAMION AMOR UNIT #: [id number] ROOM: 406 DOCTOR: FRANK COFFMAN MD,GREG BIRTHDATE: [birth year] DOS: 01/10/2019 SUBJECTIVE: She has used her noninvasive ventilation. Ventilator last night. Feeling much better this morning. There were no symptoms of chest pain reported. GI symptoms has been still reported. Shortness breaths are noted better. There were no symptoms of fever or chills. OBJECTIVE: VITAL SIGNS: Normal temperature, respiratory rate 18, heart rate 95, blood pressure 120/54. The pulse oxygen saturation on 3 liters nasal cannula 100% saturation recorded. HEAD, EYES, EARS, NOSE, AND THROAT: No acute change. NECK: Supple. CARDIOVASCULAR SYSTEM: S1, S2 audible. LUNGS: Noted without any wheezing or crackles at the present time. ABDOMEN: Soft, nontender. Bowel sounds present. EXTREMITIES: No new changes. IMPRESSION: 1. The patient with stable respiratory status was noted with a strong possibility of esophageal stricture, gastroesophageal reflux. 2. Stable COPD and chronic hypercapnic respiratory failure and hypoxia. PLAN OF MANAGEMENT: The patient was encouraged to continue using noninvasive ventilator at nighttime as ordered. She stated that she will do so. No other change in treatment will be necessary. Await for GI input for her GI problem prior to consideration of home discharge. GREG MARIE MD CM:PNTRANS [phone] GREG COFFMAN MD 01/10/191933 interface
--- NOTE | ~2019-01-08 | EKG ---
[place], [place] ELECTROCARDIOGRAM REPORT NAME: DAMION AMOR UNIT #: [id number] ROOM: 406 DOCTOR: JOSE DRAFT REPORT BIRTHDATE: [birth year] [facility] Test Date: 2019-01-08 Test Time: 15:14:01 Pat Name: DAMION AMOR Department: Room: 406 Gender: F Reference Data Expert: : [id number] Requested By: DANIELLE STEVENS Order Number: [id number] Reading MD: Alexander Finch Measurements Intervals Crosby Rate: 71 P: 75 NM: 169 QRS: 82 QRSD: 88 T: 54 QT: 382 QTc: 416 Interpretive Statements Sinus rhythm Atrial premature complex Anteroseptal infarct, age indeterminate Minimal ST elevation, inferior leads Compared to ECG 12/20/2018 19:59:45 Atrial premature complex(es) now present ST (T wave) deviation now present Myocardial infarct finding still present Electronically Signed On 01-11-2019 11:45:27 PDT by Alexander Finch CM:EKGRPT:ELECTROCARDIOGRAM REPORT [id number] DANIELLE LIZARRAGA DRAFT REPORT DANIELLE STEVENS DO
--- NOTE | ~2019-01-08 | PR ---
[place], [place] PROGRESS NOTE NAME: DAMION AMOR UNIT #: [id number] ROOM: 406 DOCTOR: FRANK COFFMAN MD,GREG BIRTHDATE: [birth year] DOS: 01/11/2019 PULMONARY PROGRESS NOTE SUBJECTIVE: The patient noted comfortable at this time, resting on the bed this morning of assessment. She was planned for the endoscopy to be done today. Complaining of mild sore throat with use of the noninvasive ventilator. Continue Diamox for medical management of chronic metabolic alkalosis. OBJECTIVE: VITAL SIGNS: Normal temperature, respiratory rate 16, heart rate 107, blood pressure 106/60 recorded. Pulse oxygen saturation recorded as 93% saturation on 3 liters nasal cannula. HEENT: Examination shows head was atraumatic. Eyes nonicterus. NECK: Supple. CARDIOVASCULAR: S1, S2 is audible. LUNGS: Noted without any wheezing or crackles. ABDOMEN: Soft, nontender. Bowel sounds present. EXTREMITIES: Without any acute edema. IMPRESSION: 1. The patient who has been currently noted with a stable respiratory status was noted for chronic obstructive pulmonary disease. 2. Metabolic alkalosis noted with CO2 level today as 41. 3. Gastroesophageal reflux disease as well. 4. Mild hypokalemia. PLAN OF MANAGEMENT: Supplementation of potassium for hyperkalemia related to the Diamox administration is very likely. Proceed with the GI workup as planned for upper endoscopy. Other therapy, plan of management, and additional treatment changes will be made based on the progression of her illness. Discharge planning could be started after the endoscopy results. GREG MARIE MD CM:PNTRANS [id number] GREG COFFMAN MD 01/11/19 1521 interface
--- NOTE | ~2019-01-08 | O ---
[place], [place] OPERATIVE NOTE NAME: DAMION AMOR UNIT #: [id number] ROOM: 406 DOCTOR: TRAVIS WAGNER MD BIRTHDATE: [birth year] DOS: 01/11/2019 GASTROENDOSCOPIC REPORT The patient is a 78-year-old who has presented with dysphagia, undergoing investigation. Consultation has been already dictated. PROCEDURE: Today's procedure part of investigation is panendoscopy plus balloon dilation of esophagus plus brush for candidiasis of the esophagus plus biopsy of the antrum and ulcerations. PREMEDICATION: Propofol. SCOPE: Olympus forward-viewing gastroscope Q10 video. REPORT: After putting the patient in left lateral position and application of lubricant to the scope, the scope was introduced. Thereafter, under direct visualization, advanced through the length of esophagus without difficulty. Benign esophageal stricture in cervical esophagus was noticed. This was balloon to size 18. Also, evidence of distal esophageal ulceration as well as reflux was noticed. Suspected moniliasis was brushed for candidiasis. Gastric pouch was entered. Gastritis noticed. As I approached the antrum. Antral ulceration seen. Biopsies obtained. Duodenal patency assured. The patient extubated, tolerated the procedure well. IMPRESSION: Esophageal moniliasis, status post brush, esophageal stricture, status post balloon dilation to size 18, antral ulceration, status post biopsy. PLAN AND DISCUSSION: Diflucan 100 mg p.o. Protonix 40 mg day p.o. full liquid diet. In addition, we are noticing that is severe reflux and retained food in the stomach, which is going to be treated with Reglan 5 mg p.o. every day one hour AC dinner. Antireflux measures. Follow up on the floor. [place], [place] OPERATIVE NOTE NAME: DAMION AMOR UNIT #: [id number] ROOM: 406 DOCTOR: TRAVIS WAGNER MD BIRTHDATE: [birth year] TRAVIS WAGNER MD CM:OPRECORD:OPERATIVE NOTE [phone] TRAVIS WAGNER MD 01/26/19 1544 interface
--- NOTE | ~2019-01-08 | PR ---
[place], [place] PROGRESS NOTE NAME: DAMION AMOR UNIT #: [id number] ROOM: 406 DOCTOR: QUENTIN JOSHUA MD BIRTHDATE: [birth year] DOS: 01/11/2019 REASON FOR VISIT: Atypical chest pain and pericardial effusion. HISTORY OF PRESENT ILLNESS: The patient is feeling better. Denies any chest pain or shortness of breath. No palpitations or dizziness. No PND, no orthopnea. REVIEW OF SYSTEMS: Review of 8 systems negative except as mentioned above. PHYSICAL EXAMINATION: VITAL SIGNS: Blood pressure 105/50, pulse 68, respiratory rate 18, weight 64.5 kilos. RHYTHM STRIPS: The patient in sinus rhythm. GENERAL: Alert, comfortable, in no acute distress. HEAD AND NECK: Neck supple. No distended neck veins. No carotid bruit. EYES: Pupils are round and equal and no jaundice. CHEST: Symmetrical, nontender. LUNGS: Clear to auscultation bilaterally. HEART: Regular rhythm, no S3, no palpable thrills. Grade 1/6 systolic murmur. ABDOMEN: Benign, nontender. Bowel sounds normal. EXTREMITIES: Showed no edema. Distal pulses palpable. SKIN: Warm and dry. No cyanosis, no clubbing. RECTAL: Deferred. GENITOURINARY: Deferred. NEUROLOGIC: The patient is alert with no focal neurologic deficit. IMPRESSION: 1. Chest pain, atypical, myocardial infarction ruled out. 2. Moderate pericardial effusion. 3. Bronchitis and pneumonitis. 4. Mild aortic stenosis. 5. Home oxygen dependent. 6. Mild hypokalemia, potassium was substituted. 7. Chronic kidney disease. 8. Coronary artery disease. RECOMMENDATIONS: 1. The patient is stable from the cardiac standpoint. Continue her current cardiac medications including her Plavix, beta blockers and statins. 2. No further cardiac testing. 3. Cardiology will sign off and she will follow up with Dr. Sullivan, her railroad car loader, after her discharge. 4. No family at bedside at the time of examination. [place], [place] PROGRESS NOTE NAME: DAMION AMOR UNIT #: [id number] ROOM: 406 DOCTOR: QUENTIN JOSHUA MD BIRTHDATE: [birth year] QUENTIN JOSHUA MD CM:PNTRANS [phone] QUENTIN JOSHUA MD 01/12/19 2231 interface
--- NOTE | ~2019-01-08 | CON ---
[place], [place] REPORT OF CONSULTATION NAME: DAMION AMOR UNIT #: [id number] ROOM: 406 DOCTOR: QUENTNI JOSHUA MD BIRTHDATE: [birth year] DOS: 01/09/2019 REASON FOR CONSULTATION: Chest pain, shortness of breath. HISTORY OF PRESENT ILLNESS: The patient is a 78-year-old with history of coronary artery disease, hypertension, pericardial effusion, and COPD, presented to the Emergency Room with shortness of breath and chest pain. Apparently, she got up to go to the bathroom, but was unable to take a deep breath and at that time, she noted to have some left-sided chest pain as well as some heart racing and nausea. Chest pain is mild. No radiation. It lasted for several minutes. Her main complaint is shortness of breath with some mild cough with yellow sputum. No hemoptysis. No fever and chills. No nausea, vomiting or diarrhea. No PND, no orthopnea. The patient is with home oxygen, status at home. She denies any edema, palpitations or dizziness. No syncope. No neurologic symptoms. No bladder or bowel symptoms. The mainframe software developer was consulted for her shortness of breath and atypical chest pain. The patient had nonischemic stress test in 08/2018. REVIEW OF SYSTEMS: Review of our 10 systems negative except as mentioned above. PAST MEDICAL HISTORY: 1. Coronary artery disease, status post stents in 2009. 2. Moderate pericardial effusion. 3. Chronic obstructive pulmonary disease. 4. Home oxygen. 5. Hypertension. 6. Acid reflux. 7. Dyslipidemia. 8. Anxiety. 9. History of uterine cancer. PAST SURGICAL HISTORY: History of coronary stents in 2009, history of partial hysterectomy and history of tonsillectomy. SOCIAL HISTORY: The patient is a former smoker, quit in 2016. Does not drink, does not use illicit drugs. FAMILY HISTORY: Nil contributory to her age. Father from unknown cause and mother from heart disease. ALLERGIES: No known drug allergies. HOME MEDICATIONS: Reviewed. PHYSICAL EXAMINATION: VITAL SIGNS: Blood pressure 180/70, pulse 90, respiration 18, weight 64 kg, BMI 25. GENERAL: Alert, comfortable, in no acute distress. NECK: Supple, no distended neck veins. No carotid bruit. CHEST: Symmetrical, nontender. [place], [place] REPORT OF CONSULTATION NAME: DAMION AMOR UNIT #: [id number] ROOM: 406 DOCTOR: JOSIANE CHERRY,QUENTIN BIRTHDATE: [birth year] LUNGS: Few scattered rhonchi. Fair air entry bilaterally. HEART: Regular rhythm, no S3. Grade 1/6 systolic murmur. No palpable thrills. ABDOMEN: Benign, nontender. Bowel sounds normal. EXTREMITIES: Showed trace edema. Distal pulses palpable. SKIN: Warm and dry. No cyanosis, no clubbing. RECTAL: Deferred. GENITOURINARY: Deferred. NEUROLOGIC: The patient is alert with no focal neurologic deficit. REVIEW OF THE DIAGNOSTIC TESTS: EKG and labs reviewed. EKG shows sinus rhythm with old anteroseptal infarction, supraventricular ectopy, nonspecific inferior ST elevation. CBC, chemistry unremarkable except creatinine 1.49. Cardiac troponins are negative x 3. The patient has elevated troponins in 06/2018. Her stress test in 08/2018 reviewed. Echo from 11/2018 revealed EF 70-780%, mild aortic stenosis and moderate pericardial effusion. IMPRESSION: 1. Chest pain, atypical, myocardial infarction ruled out. 2. Possible pneumonitis, cough with yellow sputum. 3. Coronary artery disease, status post stents in 2009. 4. Moderate pericardial effusion with no tamponade. 5. Hypertension. 6. Dyslipidemia. 7. Home oxygen. 8. Chronic obstructive pulmonary disease. 9. Mild aortic stenosis. RECOMMENDATIONS: 1. Continue current medications. 2. No further cardiac testing. 3. No family at bedside at the time of my examination. 4. Cardiology will see as needed during the weekend. 5. Follow up with Cardiology office in 2-4 weeks after her discharge. QUENTIN JOSHUA MD CM:CONSTR:REPORT OF CONSULTATION 54 01/09/19 9542 interface
--- NOTE | ~2019-01-08 | EKG ---
[place], [place] ELECTROCARDIOGRAM REPORT NAME: DAMION AMOR UNIT #: [id number] ROOM: 406 DOCTOR: JOSE DRAFT REPORT BIRTHDATE: [birth year] [facility] Test Date: 2019-01-08 Test Time: 17:35:08 Pat Name: DAMION AMOR Department: Room: 406 Gender: F Desktop Administrator: Vivian Reyes : 1940 Requested By: DANIELLE STEVENS Order Number: [id number] Reading MD: Alexander Finch Measurements Intervals [place] Rate: 72 P: 72 ND: 158 QRS: 80 QRSD: 85 T: 50 QT: 386 QTc: 423 Interpretive Statements Sinus rhythm Atrial premature complexes Lateral infarct, acute (LAD) Anteroseptal infarct, age indeterminate Minimal ST elevation, inferior leads Compared to ECG 12/20/2018 19:59:45 Atrial premature complex(es) now present ST (T wave) deviation now present Myocardial infarct finding still present Electronically Signed On 01-11-2019 11:52:45 PDT by Alexander Finch CM:EKGRPT:ELECTROCARDIOGRAM REPORT 1735 [id number] DANIELLE LIZARRAGA DRAFT REPORT DANIELLE STEVENS DO
--- NOTE | ~2019-01-08 | EKG ---
[place], [place] ELECTROCARDIOGRAM REPORT NAME: DAMION AMOR UNIT #: [id number] ROOM: 406 DOCTOR: JOSE DRAFT REPORT BIRTHDATE: [birth year] [facility] Test Date: 2019-01-08 Test Time: 21:21:13 Pat Name: DAMION AMOR Department: Room: 406 Gender: F Basket Weaver: Sofia Ramirez : 1940 Requested By: DANIELLE STEVENS Order Number: [id number] Reading MD: Alexander Finch Measurements Intervals [place] Rate: 93 P: 83 TN: 169 QRS: 83 QRSD: 78 T: 49 QT: 332 QTc: 413 Interpretive Statements Sinus tachycardia Atrial premature complexes Anteroseptal infarct, age indeterminate Compared to ECG 12/20/2018 19:59:45 Atrial premature complex(es) now present Sinus rhythm no longer present Myocardial infarct finding still present Electronically Signed On 01-10-2019 11:08:31 PDT by Alexander Finch CM:EKGRPT:ELECTROCARDIOGRAM REPORT 20 1108 DANIELLE LIZARRAGA DRAFT REPORT DANIELLE STEVENS DO
--- NOTE | ~2019-01-08 | CON ---
[place], [place] REPORT OF CONSULTATION NAME: DAMION AMOR UNIT #: [id number] ROOM: 406 DOCTOR: KRISTY CHERRYTRAVIS BIRTHDATE: [birth year] DOS: 01/11/2019 GASTROENDOSCOPIC CONSULTATION REPORT HISTORY OF PRESENT ILLNESS: The patient is a 78-year-old who has presented with multiple medical problems, among which has been dysphagia. I have been consulted in this regard. At the time of admission, the patient had H and H of 12 and 41, microcytic indices. Lactic acid was within normal limit. INR was 0.9. Comprehensive metabolic panel; BUN and creatinine 25 and 1.35. Arterial blood gases was noticed. The patient's pH was 7.40, pCO2 of 17, pO2 of 68; however. Latest lab results were noticed. Basic metabolic panel, potassium of 3.1 was noticed. Blood culture has been no growth. Urine culture has been no growth. PAST MEDICAL HISTORY: Associated with chronic hypoxemia, hypercapnia, endometrial carcinoma, dysphagia, and end-stage chronic COPD. PAST SURGICAL HISTORY: Hysterectomy, coronary artery disease, cardiac stenting, tonsillectomy. SOCIAL HISTORY: Nonsmoker, nonalcohol consumer at the present time, stopped smoking 2 years ago. FAMILY HISTORY: Noncontributory. MEDICATIONS: List was reviewed. ALLERGIES: No known medication. REVIEW OF SYSTEMS: HEENT: Denies double vision, blurred vision. RESPIRATORY: Admits to shortness of breath. CARDIOVASCULAR: Denies chest pain. DIGESTIVE SYSTEM: Dysphagia. PHYSICAL EXAMINATION: VITAL SIGNS: Stable. HEENT: Head: Normocephalic, nontraumatic. Mouth and buccal mucosa benign. NECK: Supple, no thyromegaly, no cervical lymphadenopathy. CHEST: Symmetric anatomy, COPD, decreased air entry bilaterally. HEART: Normal sinus rhythm, no gallop, no murmur. ABDOMEN: Soft. No hepato-organomegaly. Bowel sounds present. EXTREMITIES: No cyanosis, no pedal edema. NEUROLOGIC: Fully alert, oriented to time, place, person. IMPRESSION: Dysphagia, ruling out esophageal moniliasis, ruling out intrinsic pathology of esophagus, chronic obstructive pulmonary disease, gastroesophageal reflux. Labs and records reviewed. [place], [place] REPORT OF CONSULTATION NAME: DAMION AMOR UNIT #: [id number] ROOM: 406 DOCTOR: KRISTY CHERRY,TRAVIS BIRTHDATE: [birth year] Other adjunctive diagnoses as outlined in paragraph of past medical, surgical history. PLAN AND DISCUSSION: We are going to organize endoscopy and possible dilation if needed. Otherwise, cultures or biopsies as necessary. Thank you very much indeed for your kind referral. TRAVIS WAGNER MD CM:CONSTR:REPORT OF CONSULTATION 1742 01/12/19 0024 interface
--- NOTE | ~2019-01-08 | CON ---
[place], [place] REPORT OF CONSULTATION NAME: DAMION AMOR UNIT #: [id number] ROOM: 406 DOCTOR: GREG PA MD BIRTHDATE: [birth year] DOS: 01/09/2019 PULMONARY CONSULTATION, EVALUATION AND MANAGEMENT CONSULTATION REQUESTED BY: Hospitalist service. REASON FOR CONSULTATION: For assessment of COPD. HISTORY OF PRESENT ILLNESS: This is a 78-year-old white female patient with chronic hypercapnia hypoxic respiratory failure and COPD, end-stage has been admitted to the hospital, discharged on 12/25/2018. The patient has been doing well, seen in the office, followup visit was asked to continue noninvasive ventilator. The patient stated that her ventilator has not been working as she has not used that at home and the [employer] has been trying to make some changes in that, which has not been completed as yet. She presented to the hospital. She was complaining of symptoms of shortness of breath that occurs that she tried to eat something was noted with symptoms of gastroesophageal reflux, stating something sticking in the mid portion of the sternal area upon eating. The patient does have some cough with minimal sputum expectoration, no chest pain or wheezing. Denies symptoms of hematemesis, melena, or hematochezia with that. The patient denies any symptoms of chest trauma. She had been presented to the hospital and the patient has been admitted to the hospital for further care. REVIEW OF SYSTEMS: CONSTITUTIONAL: Fatigue and tiredness reported. Denies symptoms of fever or chills. EYES: Denies any burning, redness, or tenderness. EAR, NOSE, THROAT SYMPTOMS: No sore throat, hoarseness, otalgia, postnasal drainage or epistaxis. CARDIOVASCULAR: Denies anginal pain, edema, or pain in lower extremity. GASTROINTESTINAL SYMPTOMS: Symptoms of current dysphagia was noted. The patient with symptoms of gastroesophageal reflux disease. No abnormal weight loss, hematemesis, melena, or hematochezia. GENITOURINARY SYMPTOMS: No dysuria, suprapubic pain, or hematuria. MUSCULOSKELETAL: No acute joint pain, redness, or tenderness. SKIN: No lesions or rashes reported by the patient. Remaining systems were reviewed. They were noted all negative. PAST MEDICAL HISTORY: 1. The patient with known history of end-stage chronic obstructive pulmonary disease. 2. Chronic hypoxic respiratory failure. 3. Chronic hypercapnic respiratory failure, treated with noninvasive ventilator. 4. Essential hypertension. 5. Gastroesophageal reflux. 6. Endometrial cancer. 7. General anxiety disorder. [place], [place] REPORT OF CONSULTATION NAME: DAMION AMOR UNIT #: [id number] ROOM: 406 DOCTOR: FRANK COFFMAN MD,GREG BIRTHDATE: [birth year] 8. History of shingles. 9. Coronary artery disease. PAST SURGICAL HISTORY: 1. Cardiac catheterization, coronary stents insertion. 2. Complete hysterectomy. The patient has been noted with cancer of the uterus, requiring complete hysterectomy. 3. Tonsillectomy. SOCIAL HISTORY: The patient lives at home. There was no history of alcohol use, illicit drug use. Tobacco use noted since teenager, 1-2 packs of cigarettes per day reported discontinued in 2017. There was no history of alcohol use, illicit drug use reported. FAMILY HISTORY: Both parents have been . Father of unknown medical illnesses. Mother with complication of heart disease. CURRENT MEDICATIONS: Current medications, which has been administered during this hospitalization were noted as use of Protonix, Lipitor, Lovenox, Carafate, metoprolol tartrate, Plavix, Solu-Medrol 40 mg b.i.d., tramadol, DuoNeb, lorazepam, Levaquin, and other meds. DRUG ALLERGY HISTORY: Noted as no known drug allergies. PHYSICAL EXAMINATION: GENERAL: A 78-year-old female currently noted comfortable, resting on the bed without any distress. Height of 5 feet 2 inches, weight 142 pounds, BMI 25. VITAL SIGNS: Normal temperature, respiratory rate 18, heart rate 82, blood pressure 112/58. Pulse oxygen saturation on 3 liters nasal cannula 95% saturation. HEENT: Examination shows head was atraumatic. Eyes nonicterus. NECK: Supple. CARDIOVASCULAR: S1, S2 audible. LUNGS: The patient was noted general reduction of the breath sounds in the lungs bilaterally. There were no wheezing or crackles. ABDOMEN: Soft, nontender, flat. Bowel sounds present. EXTREMITIES: No new acute changes, edema, clubbing or cyanosis. MUSCULOSKELETAL: Without acute deformities. CENTRAL NERVOUS SYSTEM: General weakness, otherwise intact. LABORATORY DATA: CBC that was done yesterday noted as normal CBC. Lactic acid yesterday noted normal. PT/PTT were normal. CMP was noted as BUN 25, creatinine 1.35. CO2 was noted greater than 45. Arterial blood gas, pH of 7.40, pCO2 of 70, pO2 of 68 on 3 liters nasal cannula. Troponin cycle 3 sets were normal. CBC this morning was normal. BMP done this morning, BUN 33, creatinine 1.49. CO2 was 41. IMAGING STUDIES: Chest x-ray that was done yesterday 1 view were reviewed and it does not show any acute pulmonary infiltration, changes of COPD were present. [place], [place] REPORT OF CONSULTATION NAME: DAMION AMOR UNIT #: [id number] ROOM: [facility] DOCTOR: GREG PA MD BIRTHDATE: [birth year] IMPRESSION: 1. The patient will be currently admitted to the hospital with symptoms of gastroesophageal reflux with a strong possibility of esophageal stricture, resulting in symptoms of shortness of breath. 2. Chronic obstructive pulmonary disease without any evidence of acute exacerbation at the present time with compensated hypercarbia. 3. Metabolic alkalosis secondary to chronic resting hypercarbia. 4. Lack of use of noninvasive ventilator recently since discharge from the hospital. 5. The patient with multiple other medical problems including coronary artery disease and ____ as previously noted. PLAN OF MANAGEMENT: Use of Solu-Medrol, antibiotic will be discontinued. The patient was asked to bring the noninvasive ventilator from the home setting, so it could be assessed. It will be started after the patient bring it from home. If the patient unable to use our noninvasive ventilator at home, BiPAP will be ordered to be used at nighttime and p.r.n. during the day. GI consultation will be requested for the upper endoscopy to assess the patient's current GI symptoms. Other symptoms improved. The shortness of breath has resolved with that. Other therapy, plan of management, additional treatment changes will be made based on the progression of the illness. The CO2 level, which will be monitored if it does not resolve, will decrease less than 40, certainly Diamox will be added to the treatment. GREG MARIE MD CM:CONSTR:REPORT OF CONSULTATION 1620 01/10/19 0140 interface
[2019-01-08 05:25] VITALS: BP 123/71
[~2019-01-08 15:11] MED LIST changes: +ZOFRAN4 MG PO
[2019-01-08 15:19] VITALS: BP 120/63
--- NOTE | 2019-01-08 15:40 | NUR ---
CRITICAL CO2 CALLED FROM LAB. TEX OLIVER MADE AWARE
[2019-01-08 15:50] LABS: BASO % 0.1 % (0.0-1.0); HEMATOCRIT 41.9 % (37.0-47.0); HEMOGLOBIN 12.7 g/dl (12.0-16.0); LYMPH # 2.2 10*3/uL (1.3-4.4); LYMPH % 23.9 % (27.0-41.0); MEAN CELL VOLUME 100.5 fl (81.0-99.0); MEAN CORPUSCULAR HGB 30.5 pg (27.0-31.0); MEAN CORPUSCULAR HGB CONC 30.3 g/dl (33.0-37.0); MEAN PLATELET VOLUME 11.4 fl (9.6-12.3); MONO # 0.9 10*3/uL (0.1-1.0); MONO % 9.4 % (3.0-9.0); NEUT # 6.1 10*3/uL (2.3-7.9); NEUT % 66.4 % (47.0-73.0); PLATELET COUNT AUTOMATED 180 10*3/uL (130-400); RED BLOOD COUNT 4.17 10*6/uL (4.10-5.10); RED CELL DISTRI WIDTH 12.4 % (0-14.5); WHITE BLOOD COUNT 9.1 10*3/uL (4.8-10.8)
--- NOTE | 2019-01-08 15:50 | NUR ---
DECREASED PT TO 3L FROM 5L. DUE TO HIGH SPO2 OF 99%
[2019-01-08 16:04] LABS: ACT PARTIAL THROMBO TIME 20.6 SECONDS (20.0-32.1); INTERNATIONAL NORM RATIO 0.9 (2.0-3.5)
[2019-01-08 16:07] LABS: ALBUMIN 3.6 gm/dl (3.1-4.5); ALKALINE PHOSPHATASE 42 U/L (45-117); BUN 25 mg/dl (7-24); CHLORIDE 87 mmol/L (98-107); CREATININE 1.35 mg/dL (0.55-1.02); POTASSIUM 3.5 mmol/L (3.5-5.1); SGOT/AST 16 IU/L (3-35); SGPT/ALT 13 U/L (12-78); SODIUM 136 mmol/L (136-145); TOTAL PROTEIN 6.2 gm/dL (6.4-8.2)
[2019-01-08 16:08] LABS: TROPONIN I 0.017 ng/ml (<0.045)
[2019-01-08 17:04] LABS: BILIRUBIN NEGATIVE (NEGATIVE); BLOOD NEGATIVE (NEGATIVE); CLARITY CLEAR (CLEAR); COLOR YELLOW (YELLOW); GLUCOSE NEGATIVE (NEGATIVE); KETONE NEGATIVE (NEGATIVE); LEUKO ESTERASE 1+ (NEGATIVE); NITRITE NEGATIVE (NEGATIVE); PH 7.5 (5.0-9.0); UROBILINOGEN 0.2 E.U./dl (0.2-1.0)
[2019-01-08 17:15] LABS: ABG BASE EXCESS 15.5 mmol/L (-2.0-2.0); ABG HCO3 43.6 mmol/l (22-26); ABG O2 SATURATION 95.5 % (95-97); ARTERIAL BLOOD GAS PH 7.405 (7.35-7.45)
[2019-01-08 17:17] LABS: ARTERIAL BLOOD GAS PCO2 70.9 mmHg (35-45)
[2019-01-08 17:31] VITALS: BP 105/45
--- NOTE | 2019-01-08 17:31 | NUR ---
PT RESTING IN BED WITH FAMILY AT BEDSIDE. NO SIGNS OF DISTRESS. DINNER TRAY ORDERED.
--- NOTE | 2019-01-08 17:32 | NUR ---
WALKING PAST STUNT DRIVER, A CHANGE IN BEDSIDELEAD 2 MONITOR IS NOTED WITH AN ELEVATED ST SEGMENT COMPARED TO FIRST EKG DONE 3 HOURS AGO. PROVIDER MADE AWARE.
[2019-01-08 17:35] LABS: EPITHELIAL CELLS 0-2
[2019-01-08 17:36] LABS: BACTERIA TRACE; WBC 0-2 wbc/hpf (0-5)
[2019-01-08 19:14] VITALS: BP 174/116
--- NOTE | 2019-01-08 19:14 | NUR ---
BLOOD PRESSURE OF 174/116 COMPLETED BU AUTO BY STAT.
--- NOTE | 2019-01-08 19:16 | NUR ---
CONTINUATION OF CARE REPORT TO THIEN ROTHMAN RN.
[2019-01-08 22:11] VITALS: BP 103/59
[2019-01-09] MEDS ORDERED: CLOPIDOGREL75 MG PO (04:35)
[2019-01-09] MEDS ORDERED: DICLOFENAC SOD100 G1 T (04:36)
[2019-01-09] MEDS ORDERED: PROAIR HFA8.5 GM INH (04:38)
[2019-01-09] MEDS ORDERED: SYMB160 INH (04:39)
[2019-01-09 05:25] VITALS: BP 123/71
--- NOTE | 2019-01-09 05:25 | NUR ---
A 78, admitted to 4E, under the services of MAGI Bryant DO with a diagnosis of CHEST PAIN,COPD EXACERBATION. Chief complaint is SHORTNESS OF BREATH. Patient arrived via BED from ER. Monitor applied. Initial assessment completed. Vital signs taken and recorded. MAGI BRYANT DO notified of admission to the unit. Orders received. See assessment for past medical history, medications and allergies. Patient and/or family oriented to unit. [facility] visitation policy reviewed. Clothing/patient valuable form completed. FIDENCIO PADILLA
--- NOTE | 2019-01-09 05:25 | NUR ---
A 78, admitted to , under the services of MAGI Bryant DO with a diagnosis of COPD EXACERBATION AND CHEST PAIN. Chief complaint is SHORTNESS OF BREATH.. Patient arrived via bed from ER. Monitor applied. Initial assessment completed. Vital signs taken and recorded. MAGI BRYANT DO notified of admission to the unit. Orders received. See assessment for past medical history, medications and allergies. Patient and/or family oriented to unit. [facility] visitation policy reviewed. Clothing/patient valuable form completed. FIDENCIO PADILLA
--- NOTE | 2019-01-09 05:45 | NUR ---
MEDS RECONCILED AT BEDSIDE AND WITH CLAIM HISTORY. DR CACERES NOTIFIED.
[2019-01-09 05:54] LABS: CREATININE 1.49 mg/dL (0.55-1.02); POTASSIUM 3.7 mmol/L (3.5-5.1)
--- NOTE | 2019-01-09 06:05 | NUR ---
CRITICAL CO2 OF [address] CCAERES NOTIFIED.
[2019-01-09 06:15] LABS: HEMATOCRIT 39.5 % (37.0-47.0); HEMOGLOBIN 12.3 g/dl (12.0-16.0); MEAN CELL VOLUME 98.3 fl (81.0-99.0); MEAN CORPUSCULAR HGB 30.6 pg (27.0-31.0); MEAN CORPUSCULAR HGB CONC 31.1 g/dl (33.0-37.0); MEAN PLATELET VOLUME 12.1 fl (9.6-12.3); PLATELET COUNT AUTOMATED 163 10*3/uL (130-400); RED BLOOD COUNT 4.02 10*6/uL (4.10-5.10); RED CELL DISTRI WIDTH 12.2 % (0-14.5); WHITE BLOOD COUNT 8.4 10*3/uL (4.8-10.8)
[2019-01-09 06:53] LABS: PLATELET SUFFICIENCY NORMAL (NORMAL); TOTAL CELLS COUNTED 100 #CELLS
[2019-01-09 08:00] VITALS: BP 108/70
--- NOTE | 2019-01-09 08:27 | NUR ---
NOTIFIED DR MARIE VIA VOICEMAIL OF NEW CONSULT FOR COPD.
[2019-01-09 12:00] VITALS: BP 112/58
--- NOTE | 2019-01-09 15:44 | NUR ---
MULTIPLE ATTEMPTS MADE TO NOTIFY DR WAGNER OF NEW CONSULT FOR ESOPHAGEAL STRICTURE AND/OR REFLUX PER DR MARIE FOR A POSSIBLE EGD MON.
--- NOTE | 2019-01-09 15:48 | NUR ---
NOTIFIED RT,JOHN OF PT FAMILY BRINGING IN HOME TRILOGY UNIT. PER DR MARIE PT TO WEAR THIS AT HS.IF UNIT ISN'T WORKING PROPERLY RT WILL CONTACT PROVIDER ,KLEVER, FOR MAINTENANCE.
[2019-01-09 16:00] VITALS: BP 104/51
--- NOTE | 2019-01-09 17:14 | NUR ---
NOTIFIED DR WAGNER OF CONSULT FOR POSSIBLE ESOPHAGEAL STRICTURE/REFLUX.NO NEW ORDERS.
--- NOTE | 2019-01-09 17:23 | NUR ---
CONTACTED DEMETRIA FROM [facility]. HE INFORMED ME THAT AT [facility] WOULD BE IN ROUTE TO [facility] TO CHECK PTS HOME TRILOGY WITHIN 2O MINS.
--- NOTE | 2019-01-09 17:57 | NUR ---
Differential NOTIFED ABOUT THE PT'S TRILOGY BEING IN HOUSE AND NEEDING LOOKED AT. REP STATES A TECH WILL BE IN TO CHECK MACHINE.
--- NOTE | 2019-01-09 19:18 | NUR ---
DARVIN ZIEGLER NP ROUNDED AND SEEN PT.
[2019-01-09 20:00] VITALS: BP 128/58
--- NOTE | 2019-01-10 00:18 | NUR ---
Patient placed on home NIV unit at this time. Patient immediately voices dissatisfaction, but agrees to wear it. Oxygen in use via 3LPM charley in. SPO2: 95%
--- NOTE | 2019-01-10 01:21 | NUR ---
PTS BIPAP ALARMING AT THIS TIME. RESPIRATORY NOTIFIED & WILL BE UP TO SEE THE PT.
[2019-01-10 06:35] LABS: CREATININE 1.42 mg/dL (0.55-1.02); POTASSIUM 3.7 mmol/L (3.5-5.1)
[2019-01-10 06:39] LABS: BASO % 0.1 % (0.0-1.0); HEMATOCRIT 39.4 % (37.0-47.0); HEMOGLOBIN 12.5 g/dl (12.0-16.0); LYMPH % 7.7 % (27.0-41.0); MEAN CELL VOLUME 96.6 fl (81.0-99.0); MEAN CORPUSCULAR HGB 30.6 pg (27.0-31.0); MEAN CORPUSCULAR HGB CONC 31.7 g/dl (33.0-37.0); MONO # 0.7 10*3/uL (0.1-1.0); MONO % 5.6 % (3.0-9.0); NEUT # 11.4 10*3/uL (2.3-7.9); NEUT % 86.3 % (47.0-73.0); PLATELET COUNT AUTOMATED 165 10*3/uL (130-400); RED BLOOD COUNT 4.08 10*6/uL (4.10-5.10); RED CELL DISTRI WIDTH 12.5 % (0-14.5); WHITE BLOOD COUNT 13.2 10*3/uL (4.8-10.8)
--- NOTE | 2019-01-10 06:41 | NUR ---
DR NOEL NOTIFIED OF CRITICAL CO2.
[2019-01-10 08:00] VITALS: BP 112/70
--- NOTE | 2019-01-10 09:00 | NUR ---
SPOKE WITH DR. WAGNER THIS MORNING, INSTRUCTED (TO) TO KEEP PATIENT NPO AFTER LIQUID BREAKFAST ON Dec. HOLD ALL ANTICOAGULANT MEDICATIONS FOR EGD IN AM OF 11 JAN 2019.
[2019-01-10 12:00] VITALS: BP 110/72
[2019-01-10 16:00] VITALS: BP 91/78
--- NOTE | 2019-01-10 16:41 | NUR ---
PT REQUESTED PERSCRIBED XANAX FOR SLEEPLESSNESS DUE TO ANXIETY. REPORTS FEELING RELIEF.
[2019-01-10 20:00] VITALS: BP 101/61; BP 91/78
[2019-01-11] VITALS (8 sets, daily range): BP systolic 81–109; BP diastolic 29–77
--- NOTE | 2019-01-11 05:07 | NUR ---
PATIENT C/O OF SEVERE HEADACHE AND NAUSEA. PATIENT MEDICATED WITH PRN ZOFRAN AND ULTRAM PER ORDER. WILL MONITOR FOR EFFECTIVENESS.
--- NOTE | 2019-01-11 07:31 | NUR ---
Shift chart check completed.24 HR chart check completed.
--- NOTE | 2019-01-11 07:34 | NUR ---
Bedside report from Hola. Pt awake without complaints, in no distress at that time.
[2019-01-11 08:08] LABS: CREATININE 1.51 mg/dL (0.55-1.02); POTASSIUM 3.2 mmol/L (3.5-5.1)
--- NOTE | 2019-01-11 08:21 | NUR ---
DR MARIE NOTIFIED OF CRITICAL CO2 41
--- NOTE | 2019-01-11 08:38 | NUR ---
ON ASSESSMENT PATIENT IS ALERT, ORIENTED, C/O "SORE THROAT". SHE'S AWARE SHE IS SCHEDULED AN EGD TODAY, THAT SHE'S ALLOWED TO HAVE CLEAR LIQUIDS, THEN NPO. SHE'S DYSPNEIC WITH MINIMAL EXERTION.
--- NOTE | 2019-01-11 09:00 | NUR ---
Top Steep Tender in to talk to patient. Patient states lives at home with pham. There are few steps in the home. Physician: connie mays [facility]acy: [facility] health services: [facility] Patient's level of ADLs: INDEPENDENT Patient has working utilities: all working DME: home oxygen, portable tanks, cpcp, nebulizer from [facility] Follow-up physician's appointment after d/c: will be made by hospitalist nurse director upon discharge Does patient want to access PORTAL?: no Discharge plan discussed with patient, she lives at home with her granddaughter, patient states she needs minimal assistance with ambulation and adls. she currently has [facility], discussed with her a short term [place] [facility] for rehab due to her being weak, she declined, stated she has [facility] currently and would like to return home and continue their services, she states her pham helps her out also, case management will notify [facility] when she is medically stable for discharge. JOVI CATALAN
--- NOTE | 2019-01-11 11:40 | NUR ---
POTASSIUM HAS BEEN SUPPLEMENTED PER ONE TIME ORDER. SURGERY HAS BEEN CALLED FOR PT TO GET AN ESTIMATE OF TIME FOR PROCEDURE AND PT INFORMED IT'S TO BE "LATER THIS AFTERNOON". LIQUIDS REMOVED FROM PT'S BEDSIDE.
--- NOTE | 2019-01-11 12:46 | NUR ---
XANAX WITH A SIP OF WATER FOR ANXIETY.
--- NOTE | 2019-01-11 13:23 | NUR ---
CURRENTLY RESTING EASILY IN BED WITH HER EYES CLOSED SINCE EARLIER XANAX.
--- NOTE | 2019-01-11 15:46 | NUR ---
HAS BEEN DOZING MOST OF THE AFTERNOON, SINCE THE XANAX. REMAINS NPO FOR EGD THIS AFTERNOON.
--- NOTE | 2019-01-11 17:11 | NUR ---
TO OR VIA BED.
[2019-01-12] VITALS: BP 104/48
[2019-01-12 07:27] LABS: BASO % 0.1 % (0.0-1.0); EOS # 0.2 10*3/uL (0.0-0.4); EOS % 1.6 % (1.0-4.0); HEMATOCRIT 39.8 % (37.0-47.0); LYMPH # 1.6 10*3/uL (1.3-4.4); LYMPH % 16.3 % (27.0-41.0); MEAN CELL VOLUME 99.5 fl (81.0-99.0); MEAN CORPUSCULAR HGB CONC 30.2 g/dl (33.0-37.0); MEAN PLATELET VOLUME 11.9 fl (9.6-12.3); MONO # 0.7 10*3/uL (0.1-1.0); MONO % 7.2 % (3.0-9.0); NEUT # 7.3 10*3/uL (2.3-7.9); NEUT % 74.5 % (47.0-73.0); PLATELET COUNT AUTOMATED 135 10*3/uL (130-400); RED CELL DISTRI WIDTH 12.8 % (0-14.5); WHITE BLOOD COUNT 9.7 10*3/uL (4.8-10.8)
--- NOTE | 2019-01-12 07:29 | NUR ---
Shift chart check completed.24 HR chart check completed. Bedside report from Ondina. Patient alert, Head of bed elevated as per order. Voice is still hoarse, explanation to pt why she has a hoarse voice. Pt in no distress during report.
[2019-01-12 08:00] VITALS: BP 90/50
[2019-01-12 08:02] LABS: POTASSIUM 3.6 mmol/L (3.5-5.1)
[2019-01-12 08:07] LABS: ALBUMIN 2.9 gm/dl (3.1-4.5); CREATININE 1.22 mg/dL (0.55-1.02); TOTAL PROTEIN 5.1 gm/dL (6.4-8.2)
--- NOTE | 2019-01-12 09:00 | NUR ---
case management visits with patient, she states she will be returning home when able and wants her home health resumed, case management will notify [facility] when patient is discharged
--- NOTE | 2019-01-12 10:00 | NUR ---
C/O headache, states top of her head, nagging. Medicated with Ultram for same. See Mary. Nieves CURTIS
--- NOTE | 2019-01-12 10:30 | NUR ---
States headache is all gone and she feels better. Sitting at side of bed. Family visiting at present. Nieves CURTIS
[2019-01-12] MEDS ORDERED: FLUCONAZOLE100 MG PO (10:53)
[2019-01-12] MEDS ORDERED: REGLAN5 MG PO (10:53)
[2019-01-12] MEDS ORDERED: ACETAZOLAMIDE250 MG PO (10:53)
--- NOTE | 2019-01-12 11:24 | NUR ---
Another Multi-Disciplinary Team meeting was held on 01/12/19, for the purpose of discharge planning. The patient was referred to the following services for follow-up: patient is a potential discharge for david, JOVI CATALAN
[2019-01-12 12:00] VITALS: BP 98/50
--- NOTE | 2019-01-12 13:06 | NUR ---
case managment notified [facility] that patient is being discharged to home today
--- NOTE | 2019-01-12 13:09 | NUR ---
DISCHARGE INSTRUCTIONS GIVEN TO PT BY RODRIGUEZ. SHE DISCONTINUED HER HEP LOCK. PT IS WAITING FOR HER GRAND-DAUGHTER TO COME TRANSPORT HER HOME.
--- NOTE | 2019-01-12 13:39 | NUR ---
DISCHARGED IN STABLE CONDITION WITH ALL OF HER BELONGINGS. HER APPOINTMENTS WERE POINTED OUT ON WRITTEN DISCHARGE INSTRUCTIONS TO HER GRAND-DAUGHTER.
== END 2019-01-12 13:47 | disposition home health service (06) | DRG 391 ==
LOC: ED 15:11 → 4E 18:20 → EDHOLD 18:20 → 4E 01-09 05:17
PROVIDERS: Family Medicine; Internal Medicine; Nurse Practitioner Family; Student in an Organized Health Care Education/Training Program; ADMIT Emergency Medicine
PROC: 0DB68ZX Excision of Stomach, Via Natural or Artificial Opening Endoscopic, Diagnostic (ICD-10-PCS; principal; 2019-01-11)
PROC: 0D718ZZ Dilation of Upper Esophagus, Via Natural or Artificial Opening Endoscopic (ICD-10-PCS; principal; 2019-01-11)
PROC: 0DD38ZX Extraction of Lower Esophagus, Via Natural or Artificial Opening Endoscopic, Diagnostic (ICD-10-PCS; principal; 2019-01-11)
DX: K21.0 Gastro-esophageal reflux disease with esophagitis (principal); J18.9 Pneumonia, unspecified organism; J44.0 Chronic obstructive pulmonary disease with (acute) lower respiratory infection; E87.3 Alkalosis; B37.81 Candidal esophagitis; I31.3 Pericardial effusion (noninflammatory); K22.10 Ulcer of esophagus without bleeding; J96.12 Chronic respiratory failure with hypercapnia; J96.11 Chronic respiratory failure with hypoxia; I24.9 Acute ischemic heart disease, unspecified; J44.1 Chronic obstructive pulmonary disease with (acute) exacerbation; R73.9 Hyperglycemia, unspecified; E83.41 Hypermagnesemia; I35.0 Nonrheumatic aortic (valve) stenosis; J40 Bronchitis, not specified as acute or chronic; F41.1 Generalized anxiety disorder; K29.70 Gastritis, unspecified, without bleeding; K25.9 Gastric ulcer, unspecified as acute or chronic, without hemorrhage or perforation; K22.2 Esophageal obstruction; I12.9 Hypertensive chronic kidney disease with stage 1 through stage 4 chronic kidney disease, or unspecified chronic kidney disease; N18.9 Chronic kidney disease, unspecified; M47.9 Spondylosis, unspecified; I25.10 Atherosclerotic heart disease of native coronary artery without angina pectoris; E87.6 Hypokalemia; E78.5 Hyperlipidemia, unspecified; Z95.5 Presence of coronary angioplasty implant and graft; Z85.42 Personal history of malignant neoplasm of other parts of uterus; Z90.711 Acquired absence of uterus with remaining cervical stump; Z87.891 Personal history of nicotine dependence; Z82.49 Family history of ischemic heart disease and other diseases of the circulatory system; Z80.1 Family history of malignant neoplasm of trachea, bronchus and lung; Z79.02 Long term (current) use of antithrombotics/antiplatelets; Z79.899 Other long term (current) drug therapy; Z99.81 Dependence on supplemental oxygen; Z83.3 Family history of diabetes mellitus

== ENCOUNTER 2019-03-11 17:22 | Inpatient (IN) | payer OTHER ==
[~2019-03-11] VITALS: Ht 160 cm; Wt 64.8 kg
[~2019-03-11 17:22] MED LIST changes: +CLOPIDOGREL75 MG PO; +DICLOFENAC SOD100 G1 T; +FLUCONAZOLE100 MG PO; +PROAIR HFA8.5 GM INH; +REGLAN5 MG PO
[2019-03-11 17:29] VITALS: BP 120/64
--- NOTE | 2019-03-11 17:30 | NUR ---
PATIENT TITRATED TO 4L NC AT THIS TIME. 98% PULSE OX READING.
[2019-03-11 17:41] LABS: BASO # 0.1 10*3/uL (0.0-0.1); BASO % 0.6 % (0.0-1.0); EOS # 0.2 10*3/uL (0.0-0.4); EOS % 1.9 % (1.0-4.0); HEMATOCRIT 38.9 % (37.0-47.0); HEMOGLOBIN 11.6 g/dl (12.0-16.0); LYMPH # 2.3 10*3/uL (1.3-4.4); LYMPH % 29.7 % (27.0-41.0); MEAN CELL VOLUME 101.8 fl (81.0-99.0); MEAN CORPUSCULAR HGB 30.4 pg (27.0-31.0); MEAN CORPUSCULAR HGB CONC 29.8 g/dl (33.0-37.0); MEAN PLATELET VOLUME 11.4 fl (9.6-12.3); MONO # 0.6 10*3/uL (0.1-1.0); MONO % 8.3 % (3.0-9.0); NEUT # 4.6 10*3/uL (2.3-7.9); NEUT % 59.2 % (47.0-73.0); PLATELET COUNT AUTOMATED 218 10*3/uL (130-400); RED BLOOD COUNT 3.82 10*6/uL (4.10-5.10); RED CELL DISTRI WIDTH 13.2 % (0-14.5); WHITE BLOOD COUNT 7.7 10*3/uL (4.8-10.8)
[2019-03-11 17:52] LABS: ACT PARTIAL THROMBO TIME 23.9 SECONDS (20.0-32.1); INTERNATIONAL NORM RATIO 0.9 (2.0-3.5)
[2019-03-11 17:59] LABS: LIPASE 55 U/L (73-393)
[2019-03-11 18:45] VITALS: BP 127/67
[2019-03-11 19:03] VITALS: BP 121/59
--- NOTE | 2019-03-11 19:03 | NUR ---
A 78, admitted to , under the services of LOULOU Desai DO with a diagnosis of acute heart failure. Chief complaint is shortness of breath and pitting edema 2+ of lower extremities. Patient arrived via stretcher from ER. Monitor applied. Initial assessment completed. Vital signs taken and recorded. LOULOU DESAI DO notified of admission to the unit. Orders received. See assessment for past medical history, medications and allergies. Patient and/or family oriented to unit. [facility] reviewed. Clothing/patient valuable form completed. LUIS ALBERTO HERNANDEZ
[2019-03-11 19:19] LABS: ALBUMIN 3.6 gm/dl (3.1-4.5); ALKALINE PHOSPHATASE 48 U/L (45-117); BUN 17 mg/dl (7-24); CHLORIDE 99 mmol/L (98-107); CREATININE 1.32 mg/dL (0.55-1.02); POTASSIUM 3.8 mmol/L (3.5-5.1); SGOT/AST 29 IU/L (3-35); SGPT/ALT 11 U/L (12-78); SODIUM 142 mmol/L (136-145); TOTAL PROTEIN 6.3 gm/dL (6.4-8.2)
[2019-03-11 19:30] LABS: TROPONIN I < 0.015 ng/ml (<0.045)
[2019-03-11] MEDS ORDERED: TORSEMIDE10 MG PO (19:32)
[2019-03-11] MEDS ORDERED: SPIRIVA RESPIMAT4 GM INH (19:33)
[2019-03-11] MEDS ORDERED: VITAMIN B121000 MC1 PO (19:35)
[2019-03-11 20:00] VITALS: BP 121/59
--- NOTE | 2019-03-11 21:31 | NUR ---
PATIENT MEDICATED WITH XANAX FOR COMPLAINTS OF ANXIETY AT THIS TIME. RESPIRATIONS REGULAR AND NON-LABORED ON 3L N/C. DENIES COMPLAINTS OF PAIN OR DISCOMFORT AT THIS TIME. UP TO BEDSIDE COMMODE PER SELF. SEVERAL DIFFERENT FAMILY MEMBERS CALLED TO CHECK ON PATIENT. GRANDDAUGHTER EDILMA RUGGIERO GAVE PHONE NUMBER OF [phone] TO CONTACT HER IF WE NEED ANYTHING. WILL CONTINUE TO MONITOR. CALL LIGHT IN REACH.
--- NOTE | 2019-03-11 23:38 | NUR ---
DR. ZIEGLER'S ANSWERING SERVICE NOTIFIED OF CONSULT FOR PATIENT FOR APPARENT NEW ONSET OF CHF.
[2019-03-12] VITALS: BP 100/57
[2019-03-12 06:13] LABS: BASO % 0.5 % (0.0-1.0); EOS # 0.2 10*3/uL (0.0-0.4); EOS % 2.6 % (1.0-4.0); HEMATOCRIT 33.7 % (37.0-47.0); HEMOGLOBIN 10.1 g/dl (12.0-16.0); LYMPH # 2.1 10*3/uL (1.3-4.4); LYMPH % 36.3 % (27.0-41.0); MEAN CELL VOLUME 102.1 fl (81.0-99.0); MEAN CORPUSCULAR HGB 30.6 pg (27.0-31.0); MEAN PLATELET VOLUME 11.8 fl (9.6-12.3); MONO # 0.7 10*3/uL (0.1-1.0); MONO % 11.6 % (3.0-9.0); NEUT # 2.8 10*3/uL (2.3-7.9); NEUT % 48.8 % (47.0-73.0); PLATELET COUNT AUTOMATED 177 10*3/uL (130-400); RED CELL DISTRI WIDTH 13.2 % (0-14.5); WHITE BLOOD COUNT 5.7 10*3/uL (4.8-10.8)
[2019-03-12 06:22] LABS: ACT PARTIAL THROMBO TIME 24.3 SECONDS (20.0-32.1)
[2019-03-12 06:39] LABS: ALBUMIN 2.9 gm/dl (3.1-4.5); CREATININE 1.24 mg/dL (0.55-1.02); FREE T4 1.13 ng/dl (0.76-1.46); PHOSPHOROUS 4.3 mg/dL (2.5-4.9); TOTAL PROTEIN 5.1 gm/dL (6.4-8.2)
[2019-03-12 06:44] LABS: THYROID STIM HORMONE (HS) 1.8 uIU/ml (0.358-4.75)
[2019-03-12 06:49] LABS: POTASSIUM 2.8 mmol/L (3.5-5.1)
--- NOTE | 2019-03-12 06:52 | NUR ---
DR. NOEL NOTIFIED OF CRITICAL C02 LEVEL OF 44. NO NEW ORDERS.
[2019-03-12 07:20] LABS: VITAMIN D, 25-HYDROXY 13.8 ng/mL (30-100)
--- NOTE | 2019-03-12 07:56 | NUR ---
PT MEDICATED WITH 650MG PO TYLENOL FOR C/O HEADACHE PAIN.
[2019-03-12 08:00] VITALS: BP 98/61
--- NOTE | 2019-03-12 09:00 | NUR ---
[employer] Router in to talk to patient. Patient states lives at home with alone. There are few steps in the home. Physician: connie mays [facility]acy: [facility] Home health services: [facility], nursing and physical therapy Patient's level of ADLs: INDEPENDENT Patient has working utilities: all working DME: home oxygen, portable tanks, cpap and nebulizer from [facility] Follow-up physician's appointment after d/c: will be made by hospitalist nurse director upon discharge Does patient want to access PORTAL?: no Discharge plan discussed with patient, she states she lives at home alone, is independent in adls and ambulation, she states she does her own housework and washing, she has home oxygen, portable tanks cpap and nebulzier from [facility], she currently has [facility] nursing and physical therapy and would like services to continue. when she is medically stable for discharge, no other home needs at this time. JOVI CATALAN
--- NOTE | 2019-03-12 10:25 | NUR ---
Patient not available for Occupational Therapy evaluation as she was receiving an echo. Ami Hernandez OTR/L
--- NOTE | 2019-03-12 10:30 | NUR ---
PHYSICAL THERAPY Attempted to see pt in her room for evaluation, unavailable as having an ECHO done, will follow. Nirali Rey PT
--- NOTE | 2019-03-12 11:20 | NUR ---
PHYSICAL THERAPY Attempted to see pt again in room for evaluation, requesting to wait until after lunch, will follow. Nirali Rey PT
[2019-03-12 12:00] VITALS: BP 93/48
--- NOTE | 2019-03-12 12:00 | NUR ---
PT STATED TYLENOL WAS EFFECTIVE IN EASING HER HEADACHE PAIN.
--- NOTE | 2019-03-12 14:44 | NUR ---
PHYSICAL THERAPY Rosa Iselaallen completed full details to follow, pt moderate level of complexity 23054. PT to work on strengthening, transfers, ambulation. Recommend further rehab/SNF however pt wants to go home with HH. Nirali Rey PT
[2019-03-12 16:00] VITALS: BP 101/72
[2019-03-12 20:00] VITALS: BP 98/60
[2019-03-12 20:30] VITALS: BP 117/66
--- NOTE | 2019-03-12 20:30 | NUR ---
PATIENT UP TO BEDSIDE COMMODE AND BACK TO BED. BP RECHECKED AND RECORDED.
--- NOTE | 2019-03-12 21:15 | NUR ---
PT. C/O INDIGESTION AND WANTED SOME TUMS. CALLED DR. MORFIN AND NOTIFIED HIM OF THIS AND ORDERS RECEIVED.
--- NOTE | 2019-03-12 21:25 | NUR ---
TUMS GIVEN PER ORDER FOR INDIGESTION. XANAX GIVEN PER ORDER PER PT. REQUEST FOR SOMETHING FOR ANXIETY TO HELP HER SLEEP.
--- NOTE | 2019-03-12 22:20 | NUR ---
XANAX AND TUMS EFFECTIVE PER PT.
[2019-03-13] VITALS: BP 103/59
--- NOTE | 2019-03-13 02:06 | NUR ---
24 HR chart check completed.
--- NOTE | 2019-03-13 02:45 | NUR ---
PT. AWAKE AND C/O NOSE AND THROAT BEING DRY. HUMIDIFICATION ADDED TO O2.
[2019-03-13 05:49] LABS: BASO # 0.1 10*3/uL (0.0-0.1); BASO % 0.8 % (0.0-1.0); EOS # 0.1 10*3/uL (0.0-0.4); EOS % 1.7 % (1.0-4.0); HEMATOCRIT 34.2 % (37.0-47.0); HEMOGLOBIN 10.2 g/dl (12.0-16.0); LYMPH # 2.1 10*3/uL (1.3-4.4); LYMPH % 33.2 % (27.0-41.0); MEAN CELL VOLUME 100.9 fl (81.0-99.0); MEAN CORPUSCULAR HGB 30.1 pg (27.0-31.0); MEAN CORPUSCULAR HGB CONC 29.8 g/dl (33.0-37.0); MEAN PLATELET VOLUME 11.6 fl (9.6-12.3); MONO # 0.7 10*3/uL (0.1-1.0); MONO % 11.3 % (3.0-9.0); NEUT # 3.3 10*3/uL (2.3-7.9); NEUT % 52.8 % (47.0-73.0); PLATELET COUNT AUTOMATED 183 10*3/uL (130-400); RED BLOOD COUNT 3.39 10*6/uL (4.10-5.10); RED CELL DISTRI WIDTH 13.1 % (0-14.5); WHITE BLOOD COUNT 6.3 10*3/uL (4.8-10.8)
[2019-03-13 06:05] LABS: CREATININE 1.21 mg/dL (0.55-1.02); POTASSIUM 3.4 mmol/L (3.5-5.1); TOTAL PROTEIN 5.3 gm/dL (6.4-8.2)
--- NOTE | 2019-03-13 06:29 | NUR ---
TYLENOL GIVEN PER ORDER FOR HEADACHE PAIN RATED "5" SEE MAR.
--- NOTE | 2019-03-13 06:33 | NUR ---
NOTIFIED DR. NOEL OF CRITICAL CO2 51. NO NEW ORDERS AT THIS TIME.
--- NOTE | 2019-03-13 06:55 | NUR ---
CALLED DR. MARIE AND NO ANSWER ON CELL PHONE LEFT MESSAGE HE HAD NEW CONSULT TO PLEASE CALL IN.
--- NOTE | 2019-03-13 07:00 | NUR ---
ORDER RECEIVED FOR BI-PAP, PATIENT STATED SHE USES AT .
--- NOTE | 2019-03-13 07:30 | NUR ---
TYLENOL HELPING WITH HEADACHE PER PT.
[2019-03-13 11:58] VITALS: BP 93/58
[2019-03-13 15:23] LABS: ABG BASE EXCESS 16.4 mmol/L (-2.0-2.0); ABG HCO3 43.4 mmol/l (22-26); ABG O2 SATURATION 97.6 % (95-97); ARTERIAL BLOOD GAS PCO2 63.1 mmHg (35-45); ARTERIAL BLOOD GAS PH 7.45 (7.35-7.45)
[2019-03-13 16:00] VITALS: BP 101/78
[2019-03-13 20:00] VITALS: BP 91/53
--- NOTE | 2019-03-13 22:15 | NUR ---
XANAX GIVEN PER ORDER FOR ANXIETY. SEE MAR. PT. FEELING ANXIOUS ABOUT WEARING BIPAP.
--- NOTE | 2019-03-13 22:44 | NUR ---
TUMS GIVEN PER ORDER PER REQUEST BY PATIENT FOR HEARTBURN. SEE MAR.
[2019-03-14] VITALS: BP 100/73
[2019-03-14 06:37] LABS: BASO % 0.7 % (0.0-1.0); EOS # 0.1 10*3/uL (0.0-0.4); HEMATOCRIT 38.6 % (37.0-47.0); HEMOGLOBIN 11.4 g/dl (12.0-16.0); LYMPH # 1.9 10*3/uL (1.3-4.4); MEAN CELL VOLUME 103.2 fl (81.0-99.0); MEAN CORPUSCULAR HGB 30.5 pg (27.0-31.0); MEAN CORPUSCULAR HGB CONC 29.5 g/dl (33.0-37.0); MONO # 0.8 10*3/uL (0.1-1.0); MONO % 13.1 % (3.0-9.0); NEUT # 3.1 10*3/uL (2.3-7.9); PLATELET COUNT AUTOMATED 199 10*3/uL (130-400); RED BLOOD COUNT 3.74 10*6/uL (4.10-5.10); RED CELL DISTRI WIDTH 12.9 % (0-14.5); WHITE BLOOD COUNT 5.9 10*3/uL (4.8-10.8)
[2019-03-14 06:47] LABS: ALBUMIN 3.4 gm/dl (3.1-4.5); CREATININE 1.53 mg/dL (0.55-1.02); POTASSIUM 2.9 mmol/L (3.5-5.1); TOTAL PROTEIN 6.4 gm/dL (6.4-8.2)
--- NOTE | 2019-03-14 07:00 | NUR ---
IN MORNING REPORT IT WAS STATED THAT PATIENT REFUSED TO WEAR HER BI-PAP.
--- NOTE | 2019-03-14 07:45 | NUR ---
24 HR chart check completed.
[2019-03-14 08:00] VITALS: BP 134/77
--- NOTE | 2019-03-14 08:00 | NUR ---
NO HOSPITALIST LIST AVAILABLE. DR VALDES CONTACTED AND INFORMED OF CRITICAL CO2
--- NOTE | 2019-03-14 09:31 | NUR ---
RESTING IN BED WITH EYES CLOSED. RESPIRATIONS EASY. LUNGS DIMINISHED WITH POOR AIR EXCHANGE. PULSE OX 98% 3L HUMIDIFIED, DECREASED TO 2L. NON-PROD COUGH. TRACE BLE EDEMA. OFFERED AND EDUCATED REGARDING TEDS, PLACED AT BEDSIDE. C/O NAUSEA - MEDICATED WITH ZOFRAN IV PER PRN ORDER. CALL LIGHT WITHIN REACH. WILL MONITOR
[2019-03-14] MEDS ORDERED: COLACE100 MG PO (09:35)
--- NOTE | 2019-03-14 09:36 | NUR ---
DR GUAN AND SAMANTHA HERE TO ASSESS PATIENT AND DISCUSS PLAN OF CARE
--- NOTE | 2019-03-14 11:00 | NUR ---
MEDS APPEAR EFFECTIVE. SLEEPING. RESPIRATIONS EASY.
[2019-03-14 12:00] VITALS: BP 117/49; BP 158/86
--- NOTE | 2019-03-14 12:40 | NUR ---
DR MARIE HERE TO ASSESS PATIENT AND DISCUSS PLAN OF CARE
--- NOTE | 2019-03-14 14:25 | NUR ---
REQUESTING TO BE PLACED ON BI-PAP. RESP PAGED AND PRESENT ON FLOOR
[2019-03-14 16:00] VITALS: BP 105/69
--- NOTE | 2019-03-14 17:00 | NUR ---
BI-PAP REMOVED BY RESP AT PATIENT'S REQUEST
[2019-03-14 20:00] VITALS: BP 118/69
--- NOTE | 2019-03-14 21:42 | NUR ---
PATIENT MEDICATED WITH XANAX FOR ANXIETY AND TUMS FOR INDIGESTION. DENIES COMPLAINTS OF PAIN OR DISCOMFORT AT THIS TIME. VSS. RESPIRTATIONS REGULAR AND UNLABORED ON 3L N/C. REFUSES TO WEAR BIPAP AT THIS TIME. STATES IF SHE NEEDS IT, SHE WILL CALL. NON-PRODUCTIVE COUGH NOTED. AMBULATES TO BATHROOM PER SELF. WILL CONTINUE TO MONITOR. CALL LIGHT IN REACH.
[2019-03-15] VITALS: BP 118/68
--- NOTE | 2019-03-15 00:16 | NUR ---
PT. REFUSED BIPAP.
[2019-03-15 07:13] LABS: BASO # 0.1 10*3/uL (0.0-0.1); BASO % 0.8 % (0.0-1.0); EOS # 0.2 10*3/uL (0.0-0.4); HEMATOCRIT 38.8 % (37.0-47.0); HEMOGLOBIN 11.8 g/dl (12.0-16.0); LYMPH # 1.9 10*3/uL (1.3-4.4); LYMPH % 30.8 % (27.0-41.0); MEAN CELL VOLUME 101.8 fl (81.0-99.0); MEAN CORPUSCULAR HGB CONC 30.4 g/dl (33.0-37.0); MEAN PLATELET VOLUME 11.9 fl (9.6-12.3); MONO # 0.8 10*3/uL (0.1-1.0); MONO % 13.6 % (3.0-9.0); NEUT # 3.1 10*3/uL (2.3-7.9); NEUT % 51.8 % (47.0-73.0); PLATELET COUNT AUTOMATED 199 10*3/uL (130-400); RED BLOOD COUNT 3.81 10*6/uL (4.10-5.10)
[2019-03-15 07:17] LABS: CREATININE 1.45 mg/dL (0.55-1.02); POTASSIUM 3.1 mmol/L (3.5-5.1)
[2019-03-15 07:45] VITALS: BP 126/68
--- NOTE | 2019-03-15 08:00 | NUR ---
ASSESSMENT COMPLETED AND DOCUMENTED. PATIENT COMPLAINS OF INTERMITTENT SHORTNESS OF BREATH AND DIZZINESS. DENIES ANY PAIN. PATIENT RESTING IN BED. KAVYA MANCINI SPNRCC
--- NOTE | 2019-03-15 09:00 | NUR ---
case management visits with patient, she will return home when medically stable and denies any home needs
--- NOTE | 2019-03-15 10:00 | NUR ---
PROVIDED A.M. CARE WITH SETUP. PATIENT TOLERATED WELL. RESTING QUIETLY IN BED. KAVYA MANCINI SPNRCC
--- NOTE | 2019-03-15 10:42 | NUR ---
PHYSICAL THERAPY Patient was approached several times this am for therapy visit and reported c/o of nausea / dizziness upon first attempt, sleeping soundly on second attempt. Will continue per POC this pm as able. Star Key, SAP BASIS CONSULTANT
--- NOTE | 2019-03-15 10:45 | NUR ---
TYLENOL GIVEN FOR C/O HEADACHE. WILL MONITOR.
--- NOTE | 2019-03-15 10:48 | NUR ---
ZOFRAN GIVEN FOR C/O NAUSEA. WILL MONITOR.
--- NOTE | 2019-03-15 11:05 | NUR ---
Occupational therapy orders received and chart reviewed. Patient refusing OT evaluation at this time stating "I'm very tired right now." Occupational therapist will follow up with patient in the afternoon. Thank you. Amrita Price OTR/L
[2019-03-15 12:00] VITALS: BP 112/68
--- NOTE | 2019-03-15 12:01 | NUR ---
TYLENOL AND ZOFRAN EFFECTIVE PER PT
--- NOTE | 2019-03-15 12:48 | NUR ---
ASSESSMENT COMPLETED AND DOCUMENTED. TOLERATED WELL. PATIENT STATED THEY WERENT IN PAIN AT THE MOMENT. RESTING IN BED. KAVYA JORDAN
--- NOTE | 2019-03-15 12:55 | NUR ---
PHYSICAL THERAPY Patient seen this pm 1:1 for therapy visit and was sitting up on EOB upon therapist arrival. Patient identified by name / and was very pleasant this afternoon voicing no new c/o's at this time. Patient presented with continuos O2-3L via NC and transfers sit to stand MIN A. Patient ambulated to bathroom 20'x 1, RETAIL SERVICES PROFESSIONAL/CGA, while navigating in room with extended O2 hose, needing v/c for improved safety awareness. Patient returned to EOB sit demonstrating slow perez with decreased stride, 20'x 1 and no LOB this session. Patient remained EOB with call light, tray table and telephone awaiting lunch. Will continue per POC as tolerated, total treatment time 17 minutes. Star Key, GLASS PROCESSING WORKER
--- NOTE | 2019-03-15 13:39 | NUR ---
NO COMPLAINTS AT THIS TIME. PATIENT RESTING IN BED. REPORT GIVEN TO SADIE MANCINI SPCC
--- NOTE | 2019-03-15 14:00 | NUR ---
Occupational therapy orders received and OT evaluation completed in full on floor four. Patient precautions include fall risk, 3LO2, increased HR, weakness, and bed alarm. Per OT evaluation, OT recommends SNF. If refused, home with SN, OT, and PT. Patient complexity is low, [id number]. Thank you. Amrita Price, OTR/L
[2019-03-15 16:00] VITALS: BP 117/61
[2019-03-15 20:00] VITALS: BP 97/46
[2019-03-15 20:42] VITALS: BP 114/64
--- NOTE | 2019-03-15 22:59 | NUR ---
PT ON BIPAP AT THIS TIME.
[2019-03-16] VITALS: BP 117/69
--- NOTE | 2019-03-16 01:00 | NUR ---
PT TOOK BIPAP OFF AND THIS TIME AND STATES SHE WILL WANT IT BACK ON IN A COUPLE HOURS.
--- NOTE | 2019-03-16 01:16 | NUR ---
PT REQUESTING XANEX FOR STOMACH AND TUMS FOR INDIGESTION. MEDICATED PT WITH PRN TUMS AND XANEX ORDERED. WILL CHECK EFFECTIVENESS. CALL LIGHT WITHIN REACH.
--- NOTE | 2019-03-16 02:21 | NUR ---
PT STATES TUMS AND XANEX WERE EFFECTIVE. WILL MONITOR. CALL LIGHT WITHIN REACH.
[2019-03-16 08:00] VITALS: BP 102/52
--- NOTE | 2019-03-16 09:00 | NUR ---
case management visits with patient, disucssed with her VNA and she was receptive to this, given choice of companies she chose [facility], will send referral to [facility], patient is a possible discharge to home today
--- NOTE | 2019-03-16 11:12 | NUR ---
OT NOTE Pt was seen this A.M. 1:1 for 13 minute OT session. Upon arrival pt was supine in bed. Pt identified by name and and had no complaints at this time time. Pt presented to therapy with continuous 3L-O2 via NC which she remained on throughout the entire session. Pt transferred supine to sit EOB with SBA. Pt's resting SpO2 was 97%. Sit to stand completed from bed level with CGA for safety. Functional mobility completed to the bathroom with CGA for safety. Pt required verbal prompts throughout for safety with O2 line. Pt transferred on/off standard commode with SBA, clothing management completed with SBA, and toilet hygiene completed with supervision while seated. Pt then stood sink side while washing her hands and face with CGA for safety. Throughout pt was educated on energy conservation techniques for increased I and enhanced safety. Pt had fair carry over. Pt was left sitting uproght on the EOB with call light in hand, tray table in place, and SpO2 within functional limits. Continue with rec D/C plan to SNF. MARNI Velazquez
[2019-03-16] MEDS ORDERED: VITAMIN D5000 UNI1 PO (11:43)
[2019-03-16] MEDS ORDERED: KLOR-CON M1010 ME1 PO (11:47)
[2019-03-16] MEDS ORDERED: TORSEMIDE10 MG PO (11:47)
--- NOTE | 2019-03-16 12:56 | NUR ---
Discharge instructions reviewed with patient/family. Patient receptive and verbalizes understanding. Follow-up care arranged. Written instructions given to patient/family. SHIRLEY CASTANEDA
--- NOTE | 2019-03-17 07:45 | NUR ---
PHYSICAL THERAPY CO-SIGN I approve of the Physical Therapy notes written above. Nirali Rey PT
--- NOTE | 2019-03-17 08:14 | NUR ---
OCCUPATIONAL THERAPY CO-SIGN I approve of the Occupational Therapy notes written above. JAYMIE RIZO OTR/[place]
--- NOTE | 2019-03-17 11:01 | NUR ---
case management notified Jacque at [facility] that patient was discharged
== END 2019-03-16 12:56 | disposition home health service (06) | DRG 291 ==
LOC: ED 17:22 → EDHOLD 18:01 → 4E 18:01
PROVIDERS: Emergency Medicine; Internal Medicine; Internal Medicine Critical Care Medicine; ADMIT Internal Medicine
PROC: 5A09357 Assistance with Respiratory Ventilation, Less than 24 Consecutive Hours, Continuous Positive Airway Pressure (ICD-10-PCS; principal; 2019-03-14)
DX: I13.0 Hypertensive heart and chronic kidney disease with heart failure and stage 1 through stage 4 chronic kidney disease, or unspecified chronic kidney disease (principal); I50.31 Acute diastolic (congestive) heart failure; J96.22 Acute and chronic respiratory failure with hypercapnia; R65.10 Systemic inflammatory response syndrome (SIRS) of non-infectious origin without acute organ dysfunction; E44.0 Moderate protein-calorie malnutrition; E87.3 Alkalosis; K29.70 Gastritis, unspecified, without bleeding; E87.8 Other disorders of electrolyte and fluid balance, not elsewhere classified; D53.9 Nutritional anemia, unspecified; N18.3 Chronic kidney disease, stage 3 (moderate); I25.10 Atherosclerotic heart disease of native coronary artery without angina pectoris; K21.9 Gastro-esophageal reflux disease without esophagitis; I34.0 Nonrheumatic mitral (valve) insufficiency; J44.9 Chronic obstructive pulmonary disease, unspecified; E53.8 Deficiency of other specified B group vitamins; F41.1 Generalized anxiety disorder; E87.6 Hypokalemia; E55.9 Vitamin D deficiency, unspecified; M47.9 Spondylosis, unspecified; Y92.238 Other place in hospital as the place of occurrence of the external cause; T50.2X5A Adverse effect of carbonic-anhydrase inhibitors, benzothiadiazides and other diuretics, initial encounter; Z87.01 Personal history of pneumonia (recurrent); Z90.711 Acquired absence of uterus with remaining cervical stump; Z95.5 Presence of coronary angioplasty implant and graft; Z85.42 Personal history of malignant neoplasm of other parts of uterus; Z87.891 Personal history of nicotine dependence; Z82.49 Family history of ischemic heart disease and other diseases of the circulatory system; Z80.1 Family history of malignant neoplasm of trachea, bronchus and lung; Z79.02 Long term (current) use of antithrombotics/antiplatelets; Z79.899 Other long term (current) drug therapy; Z85.89 Personal history of malignant neoplasm of other organs and systems; Z68.31 Body mass index [BMI] 31.0-31.9, adult

== ENCOUNTER 2020-05-16 16:12 | Emergency (ER) | payer OTHER ==
[~2020-05-16] VITALS: Ht 160 cm; Wt 63.5 kg
[~2020-05-16 16:12] MED LIST changes: +COLACE100 MG PO; +KLOR-CON M1010 ME1 PO; +SPIRIVA RESPIMAT4 GM INH; +TORSEMIDE10 MG PO; +VITAMIN B121000 MC1 PO; +VITAMIN D5000 UNI1 PO
[2020-05-16 17:59] LABS: BASO # 0.1 10*3/uL (0.0-0.1); BASO % 0.6 % (0.0-1.0); EOS # 0.1 10*3/uL (0.0-0.4); EOS % 0.9 % (1.0-4.0); HEMATOCRIT 42.4 % (37.0-47.0); LYMPH # 1.9 10*3/uL (1.3-4.4); LYMPH % 18.2 % (27.0-41.0); MEAN CELL VOLUME 97.9 fl (81.0-99.0); MEAN CORPUSCULAR HGB 29.8 pg (27.0-31.0); MEAN CORPUSCULAR HGB CONC 30.4 g/dl (33.0-37.0); MEAN PLATELET VOLUME 11.6 fl (9.6-12.3); MONO % 9.6 % (3.0-9.0); NEUT # 7.3 10*3/uL (2.3-7.9); NEUT % 70.4 % (47.0-73.0); PLATELET COUNT AUTOMATED 209 10*3/uL (130-400); RED BLOOD COUNT 4.33 10*6/uL (4.10-5.10); RED CELL DISTRI WIDTH 13.2 % (0-14.5); WHITE BLOOD COUNT 10.3 10*3/uL (4.8-10.8)
[2020-05-16 18:15] LABS: ALBUMIN 3.7 gm/dl (3.1-4.5); ALKALINE PHOSPHATASE 81 U/L (45-117); BUN 15 mg/dl (7-24); CHLORIDE 98 mmol/L (98-107); CREATININE 1.47 mg/dL (0.55-1.02); POTASSIUM 3.5 mmol/L (3.5-5.1); SGOT/AST 18 IU/L (3-35); SGPT/ALT 9 U/L (12-78); SODIUM 139 mmol/L (136-145)
[2020-05-16 18:17] LABS: TROPONIN I < 0.015 ng/ml (<0.045)
[2020-05-16 19:23] VITALS: BP 128/88
== END 2020-05-16 22:45 | disposition home or self-care (01) ==
LOC: ED 16:12
PROVIDERS: Nurse Practitioner Family
DX: M54.9 Dorsalgia, unspecified (principal); R07.9 Chest pain, unspecified; Z79.899 Other long term (current) drug therapy; Z87.891 Personal history of nicotine dependence

== ENCOUNTER → 2020-11-22 | Outpatient (CLI) | payer OTHER ==
[2020-11-22 15:24] LABS: BASO % 0.6 % (0.0-1.0); EOS # 0.1 10*3/uL (0.0-0.4); EOS % 1.5 % (1.0-4.0); HEMATOCRIT 37.9 % (37.0-47.0); LYMPH # 1.3 10*3/uL (1.3-4.4); LYMPH % 21.3 % (27.0-41.0); MEAN CORPUSCULAR HGB 30.3 pg (27.0-31.0); MEAN CORPUSCULAR HGB CONC 30.3 g/dl (33.0-37.0); MEAN PLATELET VOLUME 11.4 fl (9.6-12.3); MONO # 0.6 10*3/uL (0.1-1.0); MONO % 8.9 % (3.0-9.0); NEUT # 4.2 10*3/uL (2.3-7.9); NEUT % 67.5 % (47.0-73.0); PLATELET COUNT AUTOMATED 215 10*3/uL (130-400); RED BLOOD COUNT 3.79 10*6/uL (4.10-5.10); RED CELL DISTRI WIDTH 12.7 % (0-14.5); WHITE BLOOD COUNT 6.2 10*3/uL (4.8-10.8)
== END | disposition home or self-care (01) ==
LOC: LAB 12:59 → MAMMO 13:00
PROVIDERS: ATTEND Nurse Practitioner Family
DX: N63.21 Unspecified lump in the left breast, upper outer quadrant (principal); N64.89 Other specified disorders of breast

== ENCOUNTER 2021-03-01 04:42 | Observation (INO) | payer OTHER ==
[2021-02-26 14:24] VITALS: BP 126/68
[2021-02-26 16:31] LABS: BASO # 0.1 10*3/uL (0.0-0.1); BASO % 0.8 % (0.0-1.0); EOS # 0.1 10*3/uL (0.0-0.4); EOS % 1.3 % (1.0-4.0); HEMATOCRIT 38.2 % (37.0-47.0); LYMPH # 1.4 10*3/uL (1.3-4.4); LYMPH % 22.2 % (27.0-41.0); MEAN CELL VOLUME 100.8 fl (81.0-99.0); MEAN CORPUSCULAR HGB 30.3 pg (27.0-31.0); MEAN CORPUSCULAR HGB CONC 30.1 g/dl (33.0-37.0); MEAN PLATELET VOLUME 11.8 fl (9.6-12.3); MONO # 0.6 10*3/uL (0.1-1.0); NEUT # 4.1 10*3/uL (2.3-7.9); NEUT % 66.4 % (47.0-73.0); PLATELET COUNT AUTOMATED 173 10*3/uL (130-400); RED BLOOD COUNT 3.79 10*6/uL (4.10-5.10); RED CELL DISTRI WIDTH 12.8 % (0-14.5); WHITE BLOOD COUNT 6.2 10*3/uL (4.8-10.8)
[2021-02-26 16:49] LABS: ALBUMIN 3.5 gm/dl (3.1-4.5); CREATININE 1.19 mg/dL (0.55-1.02); POTASSIUM 3.5 mmol/L (3.5-5.1); TOTAL PROTEIN 6.7 gm/dL (6.4-8.2)
[~2021-03-01] VITALS: Ht 172.7 cm; Wt 61.7 kg
[2021-03-01] VITALS (10 sets, daily range): BP systolic 103–138; BP diastolic 56–78
[~2021-03-01 04:42] MED LIST changes: +MECLIZINE HCL25 M2 PO; +SERTRALINE HYDR25 MG PO
[2021-03-02] VITALS: BP 107/51
[2021-03-02 07:04] LABS: BASO % 0.2 % (0.0-1.0); HEMATOCRIT 35.2 % (37.0-47.0); MEAN CELL VOLUME 102.6 fl (81.0-99.0); MEAN CORPUSCULAR HGB CONC 29.3 g/dl (33.0-37.0); MEAN PLATELET VOLUME 11.9 fl (9.6-12.3); MONO # 0.9 10*3/uL (0.1-1.0); MONO % 9.3 % (3.0-9.0); NEUT # 7.4 10*3/uL (2.3-7.9); NEUT % 79.2 % (47.0-73.0); PLATELET COUNT AUTOMATED 160 10*3/uL (130-400); RED BLOOD COUNT 3.43 10*6/uL (4.10-5.10); RED CELL DISTRI WIDTH 12.8 % (0-14.5); WHITE BLOOD COUNT 9.4 10*3/uL (4.8-10.8)
[2021-03-02 07:20] LABS: CREATININE 1.24 mg/dL (0.55-1.02); POTASSIUM 4.2 mmol/L (3.5-5.1)
[2021-03-02 08:00] VITALS: BP 124/56
[2021-03-02] MEDS ORDERED: ZOFRAN4 MG PO (09:01)
[2021-03-02] MEDS ORDERED: COLACE100 MG PO (09:01)
[2021-03-02] MEDS ORDERED: PERCOCET 5-3251 EACH PO (09:03)
[2021-03-02 12:00] VITALS: BP 115/54
[2021-03-02 16:00] VITALS: BP 125/76
== END 2021-03-02 16:33 | disposition home health service (06) ==
LOC: SDC 04:42 → 5E 07:43 → SDC 12:00 → 5E 03-02 16:33
PROVIDERS: Internal Medicine; Surgery; ADMIT Family Medicine; ATTEND Family Medicine
DX: D05.12 Intraductal carcinoma in situ of left breast (principal); D53.9 Nutritional anemia, unspecified; N18.32 Chronic kidney disease, stage 3b; I13.0 Hypertensive heart and chronic kidney disease with heart failure and stage 1 through stage 4 chronic kidney disease, or unspecified chronic kidney disease; I50.30 Unspecified diastolic (congestive) heart failure; I25.10 Atherosclerotic heart disease of native coronary artery without angina pectoris; Z20.822 Contact with and (suspected) exposure to COVID-19; K21.9 Gastro-esophageal reflux disease without esophagitis; J44.9 Chronic obstructive pulmonary disease, unspecified; M19.90 Unspecified osteoarthritis, unspecified site; Z79.899 Other long term (current) drug therapy; Z79.01 Long term (current) use of anticoagulants

== ENCOUNTER 2021-03-18 11:53 | Emergency (ER) | payer OTHER ==
[~2021-03-18] VITALS: Ht 160 cm; Wt 63.5 kg
[~2021-03-18 11:53] MED LIST changes: +PERCOCET 5-3251 EACH PO
[2021-03-18 12:38] LABS: BASO % 0.3 % (0.0-1.0); HEMATOCRIT 37.7 % (37.0-47.0); LYMPH # 0.6 10*3/uL (1.3-4.4); LYMPH % 8.7 % (27.0-41.0); MEAN CELL VOLUME 101.3 fl (81.0-99.0); MEAN CORPUSCULAR HGB 30.1 pg (27.0-31.0); MEAN CORPUSCULAR HGB CONC 29.7 g/dl (33.0-37.0); MEAN PLATELET VOLUME 11.3 fl (9.6-12.3); MONO % 15.4 % (3.0-9.0); NEUT # 4.9 10*3/uL (2.3-7.9); NEUT % 75.3 % (47.0-73.0); PLATELET COUNT AUTOMATED 202 10*3/uL (130-400); RED BLOOD COUNT 3.72 10*6/uL (4.10-5.10); RED CELL DISTRI WIDTH 12.9 % (0-14.5); WHITE BLOOD COUNT 6.6 10*3/uL (4.8-10.8)
[2021-03-18 12:54] LABS: CREATININE 1.13 mg/dL (0.55-1.02); POTASSIUM 3.5 mmol/L (3.5-5.1); TOTAL PROTEIN 6.3 gm/dL (6.4-8.2)
[2021-03-18 14:58] VITALS: BP 103/55
== END 2021-03-18 17:40 | disposition home or self-care (01) ==
LOC: ED 11:53
PROVIDERS: Nurse Practitioner Family
DX: J44.1 Chronic obstructive pulmonary disease with (acute) exacerbation (principal); Z20.822 Contact with and (suspected) exposure to COVID-19; Z79.899 Other long term (current) drug therapy; Z87.891 Personal history of nicotine dependence

== ENCOUNTER 2021-03-25 16:02 | Inpatient (IN) | payer OTHER ==
[~2021-03-25] VITALS: Ht 165.1 cm; Wt 60.9 kg
[2021-03-25 16:00] VITALS: BP 130/76
[2021-03-25 20:00] VITALS: BP 117/59
[2021-03-26] VITALS: BP 119/70
[2021-03-26 07:45] VITALS: BP 118/70
[2021-03-26 12:00] VITALS: BP 66/41
== END 2021-03-26 14:55 | DRG 871 ==
LOC: 4E 16:02
PROVIDERS: ADMIT Internal Medicine; ATTEND Internal Medicine
DX: A41.9 Sepsis, unspecified organism (principal); E43 Unspecified severe protein-calorie malnutrition; J69.0 Pneumonitis due to inhalation of food and vomit; N17.0 Acute kidney failure with tubular necrosis; J96.01 Acute respiratory failure with hypoxia; J44.1 Chronic obstructive pulmonary disease with (acute) exacerbation; I50.32 Chronic diastolic (congestive) heart failure; Z51.5 Encounter for palliative care; I13.0 Hypertensive heart and chronic kidney disease with heart failure and stage 1 through stage 4 chronic kidney disease, or unspecified chronic kidney disease; M19.90 Unspecified osteoarthritis, unspecified site; K21.9 Gastro-esophageal reflux disease without esophagitis; I25.10 Atherosclerotic heart disease of native coronary artery without angina pectoris; R65.20 Severe sepsis without septic shock; Z20.822 Contact with and (suspected) exposure to COVID-19; N18.30 Chronic kidney disease, stage 3 unspecified; D64.9 Anemia, unspecified; Z79.899 Other long term (current) drug therapy; Z85.3 Personal history of malignant neoplasm of breast